=== PATIENT | female | born 1995 | race Caucasian/White ===

== ENCOUNTER → 2022-04-23 | Outpatient (CLI) | payer MEDICAID, SELFPAY ==
[2022-04-23 11:24] LABS: Absolute Lymphocyte Count 1.76 X10^3/uL (0.83-4.51); Basophil# 0.02 X10^3/uL; Basophil% 0.3 % (0-1); Eosinophil# 0.03 X10^3/uL; Eosinophils% 0.4 % (0-5); Hematocrit 38.8 % (37-47); Hemoglobin 13.3 g/dL (12.0-15.0); Lymphocyte # 1.76 X10^3/ul (0.83-4.51); Lymphocyte % 24.7 % (19-41); Mean Corp Hgb Conc 34.3 g/dL (32-36); Mean Corpuscular Hgb 32.1 pg (27.0-32.0); Mean Corpuscular Volume 93.7 fL (81-99); Mean Platelet Vol. 10.3 fl (6.2-12.0); Monocyte# 0.31 X10^3/uL; Monocyte% 4.4 % (0-10); NRBC Flagged by Analyzer 0 % (0-5); Neutrophil # 4.96 X10^3/uL (2.7-7.7); Neutrophil % 69.6 % (47-70); Platelet Count 196 K/mm3 (150-450); RBC Distribution Width CV 12.1 % (11.6-14.6); RBC Distribution Width SD 41.5 fl (35.1-43.9); Red Blood Count 4.14 M/mm3 (4.2-5.4); White Blood Count 7.1 K/mm3 (4.4-11.0)
[2022-04-23 11:52] LABS: Albumin, Serum 3.2 g/dL (3.2-5.0); BUN 6 mg/dL (7-18); BUN/Creat Ratio 10.1 RATIO (10-20); EST Glomerular Filtration Rate 130 mL/min (>60); Est Glom Filt Rate - Afr Amer 158 mL/min (>60); Globulin 4.3 g/dL (2.2-4.2); Glucose 156 mg/dL (74-106); Glucose Challenge Gest 1H 50g 156 mg/dL (70-140); Protein, Total 7.5 g/dL (6.4-8.2)
[2022-04-23 11:53] LABS: ALB/GLOB Ratio 0.7 RATIO (0.9-2.4); AST(SGOT) 11 U/L (15-37); Alanine Aminotransfer ALT/SGPT 15 U/L (13-56); Alkaline Phosphatase 63 U/L (45-117); Anion Gap 6 (5-15); Calcium,Total 9.2 mg/dL (8.5-10.1); Chloride 108 mmol/L (98-107); Potassium 3.5 mmol/L (3.5-5.1); Sodium Level 138 mmol/L (136-145)
[2022-04-23 13:06] LABS: HIV - WCH Non-Reactive (Nonreactive); Hepatitis B Surface Antigen Non-Reactive (Nonreactive); Hepatitis C Antibody Non-Reactive (Nonreactive); Rubella IgG Reactive (Nonreactive); Syphilis Antibodies Non-reactive
[2022-04-23 17:01] LABS: Protein, Urine (Random) 12.9 mg/dL (<11.9); Protein:Creat Ratio 193 mg/g CRE (0-200)
[2022-04-23 17:02] LABS: Amphetamine Urine VISTA NEGATIVE (<1000 ng/mL); Barbiturate Urine VISTA NEGATIVE (< 200 ng/mL); Benzodiazepine Urine VISTA NEGATIVE (< 200 ng/mL); Cocaine Urine VISTA NEGATIVE (< 300 ng/mL); Ecstacy Urine VISTA NEGATIVE (< 500 ng/mL); Methadone Urine VISTA NEGATIVE (< 300 ng/mL); PCP Urine VISTA NEGATIVE (< 25 ng/mL); THC Urine VISTA NEGATIVE (< 50 ng/mL); Vista UDS pH Range 8
[2022-04-25 21:07] LABS: Chlamydia By Nucleic Acid AMP Negative (Negative)
[2022-04-25 21:47] LABS: Gonococcus By Nucleic Acid AMP Negative (Negative)
[2022-04-29 17:26] LABS: HPV Reflexed? NOT INDICATED
== END | disposition home or self-care (01) ==
PROVIDERS: PCP Family Medicine; Referring Provider Obstetrics & Gynecology; Visit Provider Obstetrics & Gynecology
DX: Z34.90 Encounter for supervision of normal pregnancy, unspecified, unspecified trimester (principal)
CPT/HCPCS: 36415; 80053; 80307; 82570; 82950; 84156; 85025; 86703; 86762; 86780; 86803; 86850; 86900; 86901; 87086; 87088; 87340; 87491; 87591; 88175; G0145

== ENCOUNTER → 2022-05-06 | Outpatient (CLI) | payer MEDICAID, SELFPAY ==
[2022-05-06 11:45] LABS: Glucose GTT-Gestation. Fasting 87 mg/dL (<105)
[2022-05-06 13:05] LABS: Glucose GTT-Gestational 2 Hr 143 mg/dL (<165)
[2022-05-06 13:14] LABS: Glucose GTT-Gestational 1 Hr 177 mg/dL (<190)
[2022-05-06 15:53] LABS: Glucose GTT-Gestational 3 Hr 117 L (<145)
== END | disposition home or self-care (01) ==
PROVIDERS: PCP Family Medicine; Referring Provider Obstetrics & Gynecology; Visit Provider Obstetrics & Gynecology
DX: Z13.1 Encounter for screening for diabetes mellitus (principal)
CPT/HCPCS: 36415; 82951; 82952

== ENCOUNTER → 2022-06-24 | Outpatient (CLI) | payer MEDICAID, SELFPAY ==
--- NOTE | 2022-06-24 07:46 | US_ITS ---
STUDY: SECOND AND THIRD TRIMESTER OBSTETRICAL ULTRASOUND REASON FOR EXAM: Female, 27 years old anatomy LMP: 02/11/2022. TECHNIQUE: Transabdominal and Transvaginal TECHNICAL QUALITY: Adequate. PRIOR ULTRASOUND: None. FINDINGS: There is a single intrauterine fetus. The fetus is in a cephalic presentation. There is demonstrated cardiac activity with a heart rate of 136 bpm. There is a normal amniotic fluid volume. The largest amniotic fluid pocket measures 4.3 cm. The amniotic fluid index (ALEX) is with normal limits. The placenta is posterior in location and is not low lying. There are Grade 0 placental changes. The cervix measures 5 cm in length. The adnexal regions are not visualized. BIOMETRY: BPD: 4.02 cm: 18 weeks, 1 days HC: 15.65 cm: 18 weeks, 3 days AC: 13.92 cm: 19 weeks, 2 days FL: 2.84 cm: 18 weeks, 4 days CI: 73% FL/BPD: 71% FL/HC: FL/AC: 20.4% HC/AC: 1.1 age by current US: 18 weeks, 3 days. CHADD by current US: 11/22/2022. Estimated weight: 266 grams, +/- 4 grams, 42 %. Age by LMP: 19 weeks, 0 days. CHADD by LMP: 11/18/2022. ANATOMY: Gender: Female Cranium: Normal lateral ventricles. Normal choroid plexus. Normal cerebellum. Normal cisterna magna. Normal face, nose and lips. Chest: Normal 4-chamber heart. Abdomen/Pelvis: Normal diaphragm. Normal stomach. Normal abdominal wall. Normal cord insertion. Normal 3 vessel cord. Normal kidneys. Normal bladder. Spine: Normal cervical spine. Normal thoracic spine. Normal lumbar spine. Normal sacrum. Extremities: Normal bilateral upper extremities. Normal bilateral lower extremities. US/OB Anatomy Scan IMPRESSION: Single live intrauterine gestation with a mean gestational age of 18 weeks and 3 days. Electronically Signed: José Luis Santiago MD at 10:22 EDT ,
== END | disposition home or self-care (01) ==
LOC: OPUS 07:45
PROVIDERS: PCP Family Medicine; Visit Provider Obstetrics & Gynecology
DX: Z34.92 Encounter for supervision of normal pregnancy, unspecified, second trimester (principal); Z3A.18 18 weeks gestation of pregnancy
CPT/HCPCS: 76805; 76817

== ENCOUNTER → 2022-09-04 | Outpatient (CLI) | payer MEDICAID, SELFPAY ==
[2022-09-04 11:11] LABS: Glucose GTT-Gestation. Fasting 82 mg/dL (<105)
[2022-09-04 11:24] LABS: Absolute Lymphocyte Count 2.06 X10^3/uL (0.83-4.51); Absolute Neutrophil Count 5.7 X10^3/uL (2.0-7.7); Basophil# 0.02 X10^3/uL; Basophil% 0.2 % (0-1); Eosinophil# 0.08 X10^3/uL; Hematocrit 32.4 % (37-47); Hemoglobin 10.6 g/dL (12.0-15.0); Lymphocyte # 2.06 X10^3/ul (0.83-4.51); Lymphocyte % 24.7 % (19-41); Mean Corp Hgb Conc 32.7 g/dL (32-36); Mean Corpuscular Volume 100.9 fL (81-99); Mean Platelet Vol. 9.8 fl (6.2-12.0); Monocyte# 0.41 X10^3/uL; Monocyte% 4.9 % (0-10); NRBC Flagged by Analyzer 0 % (0-5); Neutrophil # 5.66 X10^3/uL (2.7-7.7); Platelet Count 152 K/mm3 (150-450); RBC Distribution Width CV 12.8 % (11.6-14.6); RBC Distribution Width SD 46.6 fl (35.1-43.9); Red Blood Count 3.21 M/mm3 (4.2-5.4); White Blood Count 8.3 K/mm3 (4.4-11.0)
[2022-09-04 12:07] LABS: Glucose GTT-Gestational 1 Hr 169 mg/dL (<190)
[2022-09-04 13:35] LABS: Glucose GTT-Gestational 2 Hr 143 mg/dL (<165)
[2022-09-04 14:00] LABS: Glucose GTT-Gestational 3 Hr 138 L (<145)
== END | disposition home or self-care (01) ==
LOC: LAB 09:54
PROVIDERS: PCP Family Medicine; Visit Provider Obstetrics & Gynecology
DX: O99.210 Obesity complicating pregnancy, unspecified trimester (principal); Z86.32 Personal history of gestational diabetes
CPT/HCPCS: 36415; 82951; 82952; 85025

== ENCOUNTER → 2022-10-23 | Outpatient (CLI) | payer MEDICAID, SELFPAY ==
--- NOTE | 2022-10-23 10:09 | US_ITS ---
STUDY: SECOND AND THIRD TRIMESTER OBSTETRICAL ULTRASOUND - LIMITED REASON FOR EXAM: Female, 27 years old. growth PRIOR ULTRASOUND: 06.24.22. TECHNIQUE: Transabdominal TECHNICAL QUALITY: Adequate. FINDINGS: There is a single intrauterine fetus. The fetus is in an transverse lie with the head on the maternal left side. There is demonstrated cardiac activity with a heart rate of 148 bpm. There is a normal amniotic fluid volume. The largest amniotic fluid pocket measures 4.7 cm. The amniotic fluid index (ALEX) is 14.7 cm. The placenta is posterior in location and is not low lying. There are Grade 0 placental changes. The cervix measures cm in length: 3.3. BIOMETRY: BPD: 93 mm: 37 weeks, 5 days HC: 344 mm: 39 weeks, 5 days AC: 341 mm: 38 weeks, 0 days FL: 70 mm: 35 weeks, 6 days CI: 77 FL/AC: 20.5 FL/BPD: 75.28 HC/AC: 1.01 age by current US: 38 weeks, 0 days. CHADD by current US: 12.7.22. Estimated weight: 3232 grams, +/- 485 grams, 83 %. age by prior US: 35 weeks, 5 days. CHADD by prior US: 12... Age by LMP: 36 weeks, 2 days. CHADD by LMP: 12... US/OB Limited With Biometrics IMPRESSION: There is a single live intrauterine with a heart rate of 148 bpm. age by current US: 38 weeks, 0 days. CHADD by current US: 12.7.22. Estimated weight: 3232 grams, +/- 485 grams, 83 %. EFW is greater than 75%. Large for gestational age (LGA) should be considered. Electronically Signed: Isaias Felix MD at 17:11 EST ,
== END | disposition home or self-care (01) ==
PROVIDERS: PCP Family Medicine; Visit Provider Obstetrics & Gynecology
DX: O09.90 Supervision of high risk pregnancy, unspecified, unspecified trimester (principal); Z3A.38 38 weeks gestation of pregnancy
CPT/HCPCS: 76816; 87077; 87081

== ENCOUNTER 2022-11-03 18:25 | Outpatient (CLI) | payer MEDICAID, SELFPAY ==
[2022-11-03 18:43] VITALS: BP 130/75; PULSE 115; TEMP 36.2; O2SAT 96
[2022-11-03 18:47] VITALS: BMI 40.1
[2022-11-03 19:38] VITALS: BP 128/78; PULSE 103; O2SAT 96
[2022-11-03 19:39] VITALS: TEMP 36.9
[2022-11-03] MEDS: Lactated Ringers 1,000 ML 999 ML IV ×2 (19:55→21:01)
[2022-11-03 20:03] LABS: Mucous, Urine 0 SEEN /hpf (<or=2+); Red Blood Cells-Urine 0 SEEN /hpf (0-5)
[2022-11-03] MEDS: Acetaminophen 500 MG Tablet 1000 MG PO (20:06)
[2022-11-03 20:17] LABS: Color, Urine Yellow (Yellow); Glucose, Dipstick Normal (Normal); Leukocyte Esterase-Dipstick 25 /ul (Negative); Nitrite-Dipstick Negative (Negative); Occult Blood-Urine Negative /ul (Negative); Protein-Dipstick 30 mg/dl (Negative); Urine Clarity Cloudy (Clear); Urine Urobilinogen 4 mg/dl (Normal)
[2022-11-03 20:29] LABS: Urine Bilirubin Dipstick 1 mg/dL (Negative)
[2022-11-03 20:30] LABS: Ketone-Dipstick 150 mg/dl (Negative)
[2022-11-03 20:31] LABS: Amorphous Sediment 1+ URATE; Bacteria RARE /hpf (None Seen); Squamous Epithelial Cells - UA 0-5 SEEN /hpf (5-10); White Blood Cells 0-5 SEEN /hpf (0-5)
[2022-11-03] MEDS: hydrOXYzine PAM 25 MG Capsule 50 MG PO (21:01)
--- NOTE | 2022-11-03 21:30 | OB.TRI.HP_ITS ---
HPI - General HPI Narrative MEAGHAN APONTE, is a 27 y/o who presents to L&D with back pain and contractions. She has a h/o prior section and is scheduled for repeat on 11/14. The nurse called with report that her cervix was not dilated and contractions palpating mildly. She was given orders to give IV fluids and offer the patient vistaril and tylenol while hydrating. Urinalyis was also ordered showing signs of dehydration. Maternal Data Information CHADD Calculator Estimated Delivery Date Method Current WG Current Estimate 11/18/22 LMP (Certain) 38w 2d PFSH [facility] Medical History (Updated 11/03/22 @ 20:15 by Dontrell Owen) delivery delivered Gestational diabetes Gestational HTN Headache Pre-eclampsia Superficial varicosities Home Medications prenat.vits,amy,frc-paci-ynygz 1 tab PO DAILY 04/11/22 [History Last Taken 11/03/22 08:00] aspirin 81 mg capsule 81 mg PO DAILY 11/03/22 [History Last Taken 11/02/22] ferrous sulfate 325 mg (65 mg iron) capsule,extended release 325 mg PO DAILY 11/03/22 [History Last Taken 11/03/22 08:00] Allergy/AdvReac Type Severity Reaction Status Date / Time No Known Allergies Allergy Verified 11/03/22 18:45 Social History adopted: No household members: significant other number of children: 2 current occupational status: employed current occupation: [employer] pets and animals: Yes (avoid litter box) pets and animals: cat(s) Smoking Status: Never smoker alcohol intake: never substance use type: marijuana do you feel safe at home: Yes additional social history: Chandu Knutson History 3 Elective abortions Hx Para 2 Spontaneous abortions Hx # Term Pregnancies Ectopic pregnancies Hx # Pregnancies Multiple births # of living children 2 Past Pregnancies Del. Date Name GA/Weeks Outcome Route Bth Weight Gen Labor Lgth Anesthesia Del Locatn Provider FOB Unknown 05/30/2016 Verik 39 live - full term 8# 12oz Male 26 hr epidural [facility] [place] Unknown 12/26/2017 38 live - full term 8# 15oz Male epidural [facility] Delivery Date: Last Updated by: Thi Vo NP, FAMILY INDEPENDENCE CASE MANAGER-C FTP. GDM Delivery Date: Last Updated by: Thi Vo NP, FAMILY INDEPENDENCE CASE MANAGER-C Emergent CS due Pre E, severe features. Visit Details Expected Delivery Route/Plan RLTCS with JV Plans Covid status: [] Flu vaccine:declines Tdap vaccine:obtained Rhogam: n/a LARC form signed: [] movement and labor precautions reviewed. Problem list reviewed and updated with the most current plan of care details and appropriate orders placed. Relevant counseling for the gestational age provided. Continue routine care and follow up unless otherwise noted in visit notes/problem list details OB Flowsheet Initial Weight: Not Recorded Date -?-?-?-?-?-?-?-?-?-?-?-?- EGA Weight BP Urine Prot -?-?-?-?-?-?-?-?-?-?-?-?- Glucose FHR FuHt Pres Dilation -?-?-?-?-?-?-?-?-?-?-?-?- Effaced St Visit Note 04/23/22 -?-?-?-?-?-?-?-?-?-?-?-?- 10w 1d 198 lb 124/82 -?-?-?-?-?-?-?-?-?-?-?-?- 150 -?-?-?-?-?-?-?-?-?-?-?-?- SM- CRL 3.1 cm c ons with LMP 05/20/22 -?-?-?-?-?-?-?-?-?-?-?-?- 14w 0d 192 lb 122/82 Negative -?-?-?-?-?-?-?-?-?-?-?-?- Negative 160 -?-?-?-?-?-?-?-?-?-?-?-?- SM- reviewed lab s. having girl Vyla! 06/19/22 -?-?-?-?-?-?-?-?-?-?-?-?- 18w 2d 194 lb 102/74 Negative -?-?-?-?-?-?-?-?-?-?-?-?- Negative 156 -?-?-?-?-?-?-?-?-?-?-?-?- JV- no lof, vagi nalb leeding, or cramping. recommend compression stockings for some light headedness when standing. planning for rpt section at 39 weeks however pt states that she always goes before then. She failed her 1 hr gct and passed 3 hr. will rpt one hour at 28 weeks but will give option to move straight to the 3 hr. 07/19/22 -?-?-?-?-?-?-?--?-?-?-?-?- 22w 4d 201 lb 4 oz 118/79 Nega tive -?-?-?-?-?-?-?-?-?-?-?-?- Negative 150 -?-?-?-?-?-?-?-?-?-?-?-?- JV- no lof, vagi nal bleeding or dec fm. plans to do 3 hr gtt. 08/16/22 -?-?-?-?-?-?-?-?-?-?-?-?- 26w 4d 214 lb 120/78 Negative -?-?-?-?-?-?-?-?-?-?-?-?- Negative 147 -?-?-?-?-?-?-?-?-?-?-?-?- JV- no lof, vagi nal bleeding, or dec fm. gtt next visit. 08/30/22 -?-?-?-?-?-?-?-?-?-?-?-?- 28w 4d 211 lb 113/75 Negative -?-?-?-?-?-?-?-?-?-?-?-?- Negative 143 30 -?-?-?-?-?-?-?-?-?-?-?-?- LC-no lof,vb,ctx . +FM. tdap given today. 3hr gtt on friday. 09/13/22 -?-?-?-?-?-?-?-?-?-?-?-?- 30w 4d 213 lb 134/76 -?-?-?-?-?-?-?-?-?-?-?-?- 140 31 -?-?-?-?-?-?-?-?-?-?-?-?- SM- no vb lof go od fm no regular ctx yeast in groin- ordered nystop 09/27/22 -?-?-?-?-?-?-?-?-?-?-?-?- 32w 4d 219 lb 107/72 Negative -?-?-?-?-?-?-?-?-?-?-?-?- Negative 145 -?-?-?-?-?-?-?-?-?-?-?-?- JV- no lof, vagi nal bleeding, or dec fm. getting over yeast infection. planning repeat 10/11/22 -?-?-?-?-?-?-?-?-?-?-?-?- 34w 4d 222 lb 131/80 Negative -?-?-?-?-?-?-?-?-?-?-?-?- Negative 166 36 -?-?-?-?-?-?-?-?-?-?-?-?- JV-no lof, vagin al bleedin or dec fm measuring lga needs growth scan 36 weeks 10/23/22 -?-?-?-?-?-?-?-?-?-?-?-?- 36w 2d 229 lb 2 oz 112/72 -?-?-?-?-?-?-?-?-?-?-?-?- 146 41 Transverse 0 -?-?-?-?--?-?-?-?-?-?-?-?- JV- growth scan today pending but tech told pt baby is already 8 lbs. ALEX 14. GBs collected. 11/01/22 -?-?-?-?-?-?-?-?-?-?-?-?- 37w 4d 232 lb 111/80 Negative -?-?-?-?-?-?-?-?-?-?-?-?- Negative 145 42 -?-?-?-?-?-?-?-?-?-?-?-?- SM- no vb lof go od fm no regular ctx ROS Constitutional Constitutional: Reports systems reviewed and no addt'l complaints, except as documented Gastrointestinal Gastrointestinal: Denies bloating, constipation, cramping, diarrhea, nausea or vomiting Genitourinary Genitourinary: Reports other Details: Denies vaginal odor, vaginal bleeding, or vaginal discharge ; Denies difficulty urinating or flank pain NST FHR Rate Baby A Baseline: 140 Variability:: Moderate Accelerations:: 15 x 15 Decelerations:: None NST Reactive:: Yes FHR Category:: Category I Assessment & Plan (1) History of : COMMENT: X 2:1st:fTP; 2nd:Pre E, RLTCS scheduled 11/14 @ 7:30 with JV (2) History of gestational diabetes: COMMENT: 1st . Check 1 hr GCT NOB, early:1 hr GCT elevated 156. 3 hr GCTnl rpt 3 hr 28weeks: [] (3) History of pre-eclampsia: COMMENT: 2nd , emergent CS. baseline labs drawn. baby asa at 14 weeks. (4) Supervision of high risk , antepartum: COMMENT: PRR CHADD:11/18/22, girl, Vyla PC:Lakesha Garcia. [facility]. (5) : QUALIFIERS: Weeks of gestation: 36 weeks Qualified Code(s): Z3A.36 - 36 weeks gestation of COMMENT: anatomy nl, NIPT low risk, carrier neg. (6) Obesity affecting : QUALIFIERS: Trimester: third trimester Qualified Code(s): O99.213 - Obesity complicating , third trimester COMMENT: 3 hr gct nl. (7) Anemia: COMMENT: Add Fe OTC once daily opposite PNV. (8) Positive GBS test: COMMENT: PCN at delivery PLAN: Plan false labor after monitoring for 2 hours. No cervical change and contractions sp aced out. I offered to keep her longer overnight and NPO incase cervix changed and she decided to go home and rest. Charges/Coding Multi Select Codes Urinary/Genital Urinary/Genital CPT Codes: 60166-57 non-stress test Interp
[2022-11-03 22:27] VITALS: BP 126/72; PULSE 99; TEMP 36.7
== END 2022-11-03 23:05 | disposition home or self-care (01) ==
LOC: WPOUT 18:27 → WP 18:28
PROVIDERS: PCP Family Medicine; Visit Provider Obstetrics & Gynecology
DX: O47.1 False labor at or after 37 completed weeks of gestation (principal); O99.213 Obesity complicating pregnancy, third trimester; Z3A.38 38 weeks gestation of pregnancy; Z3A.36 36 weeks gestation of pregnancy
CPT/HCPCS: 96360; 96361 ×3; 59025; 59050; 81001; 87086; 87088; 99218; J7120; G0378

== ENCOUNTER 2022-11-14 05:33 | Inpatient (IN) | payer MEDICAID, SELFPAY ==
[2022-11-14] VITALS (24 sets, daily range): BP systolic 91–139; BP diastolic 50–78; PULSE 92–115; RESP 14–18; TEMP 36.1–36.7; O2SAT 92–98; BMI 40.5
[2022-11-14] MEDS: Lactated Ringers 1,000 ML 999 ML IV (05:50)
[2022-11-14] MEDS: Acetaminophen 500 MG Tablet 1000 MG PO ×4 (06:01→23:32)
[2022-11-14 06:04] LABS: Basophil# 0.03 X10^3/uL; Basophil% 0.3 % (0-1); Eosinophil# 0.06 X10^3/uL; Eosinophils% 0.6 % (0-5); Hematocrit 32.7 % (37-47); Hemoglobin 10.3 g/dL (12.0-15.0); Lymphocyte % 25.5 % (19-41); Mean Corp Hgb Conc 31.5 g/dL (32-36); Mean Corpuscular Hgb 29.4 pg (27.0-32.0); Mean Corpuscular Volume 93.4 fL (81-99); Mean Platelet Vol. 11.1 fl (6.2-12.0); Monocyte# 0.72 X10^3/uL; Monocyte% 7.7 % (0-10); NRBC Flagged by Analyzer 0 % (0-5); Neutrophil # 6.04 X10^3/uL (2.7-7.7); Neutrophil % 64.3 % (47-70); Platelet Count 148 K/mm3 (150-450); RBC Distribution Width CV 13.8 % (11.6-14.6); RBC Distribution Width SD 46.6 fl (35.1-43.9); White Blood Count 9.4 K/mm3 (4.4-11.0)
[2022-11-14] MEDS: Sodium Citrate/Citric Acid 30 ML UDC PO (07:01)
[2022-11-14] MEDS: Lactated Ringers 1,000 ML 150 ML IV (07:01)
--- NOTE | 2022-11-14 07:08 | HP.PCM.OB_ITS ---
HPI - General General Date of Admission: 11/14/22 HPI Narrative MEAGHAN APONTE, is a 27 y/o @39 weeks 3 days who presents to L&D for a repeat section. Maternal Data Information CHADD Calculator Estimated Delivery Date Method Current WG Current Estimate 11/18/22 LMP (Certain) 39w 3d PFSH [facility] Medical History delivery delivered Gestational diabetes Gestational HTN Headache Pre-eclampsia Superficial varicosities Home Medications prenat.vits,amy,kay-hgxn-oinij 1 tab PO DAILY 04/11/22 [History Last Taken 11/13/22] aspirin 81 mg capsule 81 mg PO DAILY 11/03/22 [History Last Taken 11/13/22] ferrous sulfate 325 mg (65 mg iron) capsule,extended release 325 mg PO DAILY 11/03/22 [History Last Taken 11/13/22] Allergy/AdvReac Type Severity Reaction Status Date / Time No Known Allergies Allergy Verified 11/08/22 10:24 Social History adopted: No household members: significant other number of children: 2 current occupational status: employed current occupation: [employer] pets and animals: Yes (avoid litter box) pets and animals: cat(s) Smoking Status: Never smoker alcohol intake: never substance use type: marijuana do you feel safe at home: Yes additional social history: Chnadu Eamon History 3 Elective abortions Hx Para 2 Spontaneous abortions Hx # Term Pregnancies Ectopic pregnancies Hx # Pregnancies Multiple births # of living children 2 Past Pregnancies Del. Date Name GA/Weeks Outcome Route Bth Weight Infant Gen Labor Lgth Anesthesia Del Locatn Provider FOB Unknown 05/30/2016 Verik 39 live - full term 8# 12oz Male 26 hr epidural [facility] [place] Unknown 12/26/2017 38 live - full term 8# 15oz Male epidural [facility] Delivery Date: Last Updated by: Thi Vo DOCTOR CHIROPRACTIC, DOCTOR CHIROPRACTIC-C FTP. GDM Delivery Date: Last Updated by: Thi Vo NP, DOCTOR CHIROPRACTIC-C Emergent CS due Pre E, severe features. Visit Details Expected Delivery Route/Plan RLTCS with JV Plans Covid status: [] Flu vaccine:declines Tdap vaccine:obtained Rhogam: n/a LARC form signed: [] movement and labor precautions reviewed. Problem list reviewed and updated with the most current plan of care details and appropriate orders placed. Relevant counseling for the gestational age provided. Continue routine care and follow up unless otherwise noted in visit notes/problem list details OB Flowsheet Initial Weight: Not Recorded Date -?-?-?-?-?-?-?-?-?-?-?-?- EGA Weight BP Urine Prot -?-?-?-?-?-?-?-?-?-?-?-?- Glucose FHR FuHt Pres Dilation -?-?-?-?-?-?-?-?-?-?-?-?- Effaced St Visit Note 04/23/22 -?-?-?-?-?-?-?-?-?-?-?-?- 10w 1d 198 lb 124/82 -?-?-?-?-?-?-?-?-?-?-?-?- 150 -?-?-?-?-?-?-?-?-?-?-?-?- SM- CRL 3.1 cm c ons with LMP 05/20/22 -?-?-?-?-?-?-?-?-?-?-?-?- 14w 0d 192 lb 122/82 Negative -?-?-?-?-?-?-?-?-?-?-?-?- Negative 160 -?-?-?-?-?-?-?-?-?-?-?-?- SM- reviewed lab s. having girl Vyla! 06/19/22 -?-?-?-?-?-?-?-?-?-?-?-?- 18w 2d 194 lb 102/74 Negative -?-?-?-?-?-?-?-?-?-?-?-?- Negative 156 -?-?-?-?-?-?-?-?--?-?-?-?- JV- no lof, vagi nalb leeding, or cramping. recommend compression stockings for some light headedness when standing. planning for rpt section at 39 weeks however pt states that she always goes before then. She failed her 1 hr gct and passed 3 hr. will rpt one hour at 28 weeks but will give option to move straight to the 3 hr. 07/19/22 -?-?-?-?-?-?-?-?-?-?-?-?- 22w 4d 201 lb 4 oz 118/79 Nega tive -?-?-?-?-?-?-?-?-?-?-?-?- Negative 150 -?-?-?-?-?-?-?-?-?-?-?-?- JV- no lof, vagi nal bleeding or dec fm. plans to do 3 hr gtt. 08/16/22 -?-?-?-?-?-?-?-?-?-?-?-?- 26w 4d 214 lb 120/78 Negative -?-?-?-?-?-?-?-?-?-?-?-?- Negative 147 -?-?--?-?-?-?-?-?-?-?-?-?- JV- no lof, vagi nal bleeding, or dec fm. gtt next visit. 08/30/22 -?-?-?-?-?-?-?-?-?-?-?-?- 28w 4d 211 lb 113/75 Negative -?-?-?-?-?--?-?-?-?-?-?-?- Negative 143 30 -?-?-?-?-?-?-?-?-?-?-?-?- LC-no lof,vb,ctx . +FM. tdap given today. 3hr gtt on friday. 09/13/22 -?-?-?-?-?-?-?-?-?-?-?--?- 30w 4d 213 lb 134/76 -?-?-?-?-?-?-?-?-?-?-?-?- 140 31 -?-?-?-?-?-?-?-?-?-?-?-?- SM- no vb lof go od fm no regular ctx yeast in groin- ordered nystop 09/27/22 -?-?-?-?-?-?-?-?-?-?-?-?- 32w 4d 219 lb 107/72 Negative -?-?-?-?-?-?-?-?-?-?-?-?- Negative 145 -?-?-?-?-?-?-?-?-?--?-?-?- JV- no lof, vagi nal bleeding, or dec fm. getting over yeast infection. planning repeat 10/11/22 -?-?-?-?-?-?-?-?-?-?-?-?- 34w 4d 222 lb 131/80 Negative -?-?-?-?-?-?-?-?-?-?-?-?- Negative 166 36 -?-?-?-?-?-?-?-?-?-?-?-?- JV-no lof, vagin al bleedin or dec fm measuring lga needs growth scan 36 weeks 10/23/22 -?-?-?-?-?-?-?-?-?-?-?-?- 36w 2d 229 lb 2 oz 112/72 -?-?-?-?-?-?-?-?-?-?-?-?- 146 41 Transverse 0 -?-?-?-?-?-?-?-?-?-?-?-?- JV- growth scan today pending but tech told pt baby is already 8 lbs. ALEX 14. GBs collected. 11/01/22 -?-?-?-?-?-?-?-?-?-?-?-?- 37w 4d 232 lb 111/80 Negative -?-?-?-?-?-?-?-?-?-?-?-?- Negative 145 42 -?-?-?-?-?-?-?-?-?-?-?-?- SM- no vb lof go od fm no regular ctx 11/08/22 -?-?-?-?-?-?-?-?-?-?-?-?- 38w 4d 236 lb 124/79 Negative -?-?-?-?-?-?-?-?-?-?-?-?- Negative 140 -?-?-?-?-?-?-?-?-?-?-?-?- SM- no vb lof go od fm no regualr ctx ROS Constitutional Constitutional: Denies change in weight, fatigue, fever(s), headache(s), poor appetite or weakness Eyes Eyes: Denies blurry vision, change in vision, seeing flashes or spots in vision ENT HEENT: Denies dizziness, headache(s), loss taste/smell or sore throat Cardiovascular Cardiovascular: Denies chest pain, dizziness, dyspnea, irregular heart rhythm, leg edema, palpitations, rapid heart rate or vomiting Respiratory/Chest Respiratory/Chest: Denies chest tightness, cough, dyspnea or breast pain Gastrointestinal Gastrointestinal: Denies abdominal pain, anorexia, constipation, cramping, diarrhea, hemorrhoids, vomiting or weight changes Genitourinary Genitourinary: Denies dysuria, flank pain, genital lesions, genital pain, urinary frequency or urinary urgency Musculoskeletal Musculoskeletal: Denies back pain, difficulty walking, joint pain, limited range of motion, muscle cramps or numbness Integumentary Integumentary: Denies lesions or unusual bruising Neurologic Neurologic: Denies abnormal movements, abnormal speech, dizziness, numbness, seizure-like activity or syncope Psychiatric Psychiatric: Denies anxiety, behavioral changes, change in appetite, change in libido, cognitive impairment, confusion, depression, difficulty concentrating, hallucinations or suicidal thoughts Endocrine Endocrinology: Denies excessive sweating, polydipsia or polyuria Hematologic/Lymphatic Hematologic/Lymphatic: Denies easy bleeding, easy bruising or lymphadenopathy Allergic/Immunologic Allergic/Immunologic: Denies itchy eyes, lip swelling, seasonal rhinorrhea, rhinitis, throat swelling, tongue swelling, eczemia, wheezing or asthma Vital Signs Vital Signs Vital Signs: 11/14/22 05:45 11/14/22 05:45 11/14/22 05:45 Temperature Temperature Source Pulse Rate 112 H 113 H Respiratory Rate Blood Pressure 139/78 H Blood Pressure Mean BP Systolic 139 BP Diastolic 78 Blood Pressure Source Blood Pressure Position Blood Pressure Location Pulse Ox Oxygen Delivery Method 11/14/22 05:45 11/14/22 05:43 11/14/22 05:43 Temperature 97.2 F L Temperature Source Temporal Pulse Rate Respiratory Rate Blood Pressure Blood Pressure Mean BP Systolic BP Diastolic Blood Pressure Source Blood Pressure Position Blood Pressure Location Pulse Ox 97 Oxygen Delivery Method 11/14/22 05:57 Temperature 97.2 F L Temperature Source Temporal Pulse Rate 115 H Respiratory Rate 16 Blood Pressure 139/78 H Blood Pressure Mean 98 BP Systolic BP Diastolic Blood Pressure Source Monitor Blood Pressure Position Semi-Fowlers Blood Pressure Location Right Arm Pulse Ox 98 Oxygen Delivery Method Room Air Weight Weight: 236 lb Body Mass Index (BMI) 40.5 Physical Exam Const alert, oriented x3, no apparent distress and healthy appearing General Appearance: cooperative; Negative for anxious HEENT normocephalic Face and Sinus: normal facial exam Eyes EOMs intact bilaterally and no scleral icterus General Eye: normal appearance of both eyes Neck full ROM and supple Lymph Lymphatic: no lymphadenopathy noted Chest Chest: abnormal inspection of the chest Resp normal respiratory effort Effort and Inspection: able to speak in complete sentences Cardio regular rate GI soft to palpation and non-tender Inspection: gravid Palpation: soft; Negative for tender Back/Spine no CVA tenderness Extremity normal to inspection, full ROM and no clubbing, cyanosis or edema General Extremity: Negative for calf tenderness or edema Skin Lesions: no lesions Rashes: no rashes Psych mental status grossly normal Labs Labs Labs: Blood Type O POSITIVE Antibody Screen NEGATIVE Hct 32.7 % (37-47) L Hgb 10.3 g/dL (12.0-15.0) L Obstetrics US Syphilis Total Ab Non-reactive Rubella IgG Antibody Reactive (Nonreactive) Hep Bs Antigen Non-Reactive (Nonreactive) Chlamydia DNA (GEMA) Negative (Negative) Neisseria gonorrhoeae DNA (GEMA) Negative (Negative) HIV 1&2 Antibody Non-Reactive (Nonreactive) Glucose 1 Hr 50 gm 156 mg/dL (70-140) H Miscellaneous Test Assessment & Plan (1) History of : COMMENT: X 2:1st:fTP; 2nd:Pre E, RLTCS scheduled 11/14 @ 7:30 with JV (2) History of gestational diabetes: COMMENT: 1st . Check 1 hr GCT NOB, early:1 hr GCT elevated 156. 3 hr GCTnl rpt 3 hr 28weeks: [] (3) History of pre-eclampsia: COMMENT: 2nd , emergent CS. baseline labs drawn. baby asa at 14 weeks. (4) Supervision of high risk , antepartum: COMMENT: PRR CHADD:11/18/22, girl, Vyla PC:Lakesha Garcia. Fiance:Eamon([facility]) 1st together. (5) : QUALIFIERS: Weeks of gestation: 38 weeks Qualified Code(s): Z3A.38 - 38 weeks gestation of COMMENT: anatomy nl, NIPT low risk, carrier neg. (6) Obesity affecting : QUALIFIERS: Trimester: third trimester Qualified Code(s): O99.213 - Obesity complicating , third trimester COMMENT: 3 hr gct nl. (7) Anemia: COMMENT: Add Fe OTC once daily opposite PNV. (8) Positive GBS test: COMMENT: PCN at delivery PLAN: Plan plan for repeat section- ERAS protocol ordered SCDs 2 grams ancef plan for dc after 24-48 hrs if both mom and baby are stable per nurses, FOB active funny h/o THC use, will run tox screen per their assessment and protocol with h/o drug use.
[2022-11-14] MEDS: Cefazolin 2 GM in 0.9% Normal Saline 100 ML IV (07:15)
[2022-11-14 07:33] LABS: Amphetamine Urine VISTA NEGATIVE (<1000 ng/mL); Barbiturate Urine VISTA NEGATIVE (< 200 ng/mL); Benzodiazepine Urine VISTA NEGATIVE (< 200 ng/mL); Cocaine Urine VISTA NEGATIVE (< 300 ng/mL); Ecstacy Urine VISTA NEGATIVE (< 500 ng/mL); Methadone Urine VISTA NEGATIVE (< 300 ng/mL); PCP Urine VISTA NEGATIVE (< 25 ng/mL); THC Urine VISTA NEGATIVE (< 50 ng/mL); Vista UDS pH Range 6
[2022-11-14] MEDS: Oxytocin 15 Units/NS 250ml 15 UNITS/250 ML IV.SOLN 83 UNITS IV (08:30)
--- NOTE | 2022-11-14 08:36 | OP.PCM_ITS ---
Assessment & Plan (1) History of : COMMENT: X 2:1st:fTP; 2nd:Pre E, RLTCS scheduled 11/14 @ 7:30 with JV (2) History of gestational diabetes: COMMENT: 1st . Check 1 hr GCT NOB, early:1 hr GCT elevated 156. 3 hr GCTnl rpt 3 hr 28weeks: [] (3) History of pre-eclampsia: COMMENT: 2nd , emergent CS. baseline labs drawn. baby asa at 14 weeks. (4) Supervision of high risk , antepartum: COMMENT: PRR CHADD:11/18/22, girl, Vyla PC:Lakesha Garcia. Fiance:Eamon([facility] 1st together. (5) : QUALIFIERS: Weeks of gestation: 38 weeks Qualified Code(s): Z3A.38 - 38 weeks gestation of COMMENT: anatomy nl, NIPT low risk, carrier neg. (6) Obesity affecting : QUALIFIERS: Trimester: third trimester Qualified Code(s): O99.213 - Obesity complicating , third trimester COMMENT: 3 hr gct nl. (7) Positive GBS test: COMMENT: PCN at delivery (8) Anemia: COMMENT: Add Fe OTC once daily opposite PNV. Maternal Data Information CHADD Calculator Estimated Delivery Date Method Current WG Current Estimate 11/18/22 LMP (Certain) 39w 3d Final CHADD: 11/18/22 Final CHADD Source: LMP Gestational age: 39 weeks 3 days Details Operative Information Date of Procedure: 11/14/22 Pre-Operative Diagnosis: @ 39 weeks 3 days, gestational diabetes and prior sections Post-Operative Diagnosis: @ 39 weeks 3 days, gestational diabetes and prior sections Indications for : Repeat Elective Classification: Scheduled Procedure Type: low transverse hull sorter #1: Joan Mcmahon Type of Anesthesia: Spinal Anesthesiologist: Ryan Escobedo Antibiotic Given: Ancef 2 grams IV x1 Estimated Blood Loss: 500cc Findings Description of Procedure: The patient is a 27 y/of @ 39 weeks 3 days who presented for repeat C- section. Spinal anesthesia was placed without difficulty. Cheatham catheter was placed. The patient was placed in the dorsal supine position with leftward tilt. Patient was prepped and draped in the normal sterile fashion. Pfannenstiel skin incision was made with the scalpel and carried through to the underlying layer of fascia with the scalpel. Fascia was nicked in the midline and the incision extended laterally. The rectus bellies were dissected off superiorly and inferiorly with out complication both sharply and bluntly. The peritoneum was entered digitally. The incision was stretched and a low transverse uterine incision was made with the scalpel. The infant's head was delivered atraumatically followed by the anterior and posterior shoulders without complication the rest of the infant delivered. The cord was clamped and cut and the was handed off to awaiting nurse. The placenta was delivered spontaneously immediately following and was noted to be intact and have a three-vessel cord. The uterus was exteriorized cleared of all clots and debris, and the incision was closed in a double layer closure using #1Vicryl followed by a #1 Monocryl. The ovaries and fallopian tubes were noted to be within normal limits. The uterus was returned to the maternal abdomen and gutters were cleared of all clots and debris. The peritoneum was closed with 3-0 Monocryl in a running fashion. Gloves were changed prior to fascial closure. Fascia was closed with 0 PDS in a running fashion. Subcutaneous tissue was copiously irrigated and the skin was closed with 3-0 Monocryl in a subcuticular fashion. Mepilex dressing was applied without complication. Patient was taken to recovery in stable condition. It was discussed with the patient that based on the clinical information obtained during this encounter, combined with her history, at this time I would recommend repeat sections for future deliveries if further pregnancies are desired. weight 10lbs 1 oz Amniotic Membrane Rupture Type: Artificial Amniotic Fluid Description: Clear Placental Delivery Description: Expressed Placenta Disposition: [facility] Cord Vessel Description: 3 Vessels Cord Entanglement: None Infant A Gender: Female (1 minute): 8 (5 minute): 9 Delayed Cord Clamping: Yes Complications Risks of Surgery Discussed w/Patient: Bleeding, Anesthesia Risks, Infection, Need for Future C-Sections and Injury to surrounding structure(s) including bowel and bladder Multi Select Codes Urinary/Genital Urinary/Genital CPT Codes: 28162 delivery+PP Care([facility])
--- NOTE | 2022-11-14 08:40 | DCINST_ITS ---
Discharge Instructions Diet Discharge Diet: No restrictions Activity Discharge Activity: May Not Drive (for 2 weeks or while taking narcotic pain medications.), May Shower and May Take a Tub Bath (in 7 days.) May resume sexual activity in: 4-6 weeks Weight Bearing Status: Full weight bearing Lifting Restrictions: 20 pounds Dressing / Incision Call your doctor if your incision/area has: Continuous Slow Oozing, Sudden Increased Bleeding, Increased Pain/ Swelling, Increased Redness and Foul Smelling Discharge Call your doctor if you observe: Fever of 101 or Higher and Using more than 1 pad per hour Suture Line Care: Avoid Pulling/Pushing and Avoid Pinching/Bending Cleanse incision/area with: Soap & Water and Keep Dressing Clean & Dry Follow Up Care Please Follow Up With: Purvi Melgar DO When: Call [phone] to make an appointment for an incision check in 1-2 weeks. Test Results: Test results from this visit will be discussed in further detail at your follow- up appointment, if applicable. Discharge Plan Admission Admit Date/Time: 11/14/22 05:33 Primary Reason for Your Visit: section Attending Provider: Purvi Melgar Primary Care Provider: Elder Morrow Discharge Orders/Prescriptions Prescriptions: New naproxen 250 mg tablet 500 mg PO Q8H PRN PRN (Reason: Mild Pain ) Qty: 30 0RF oxycodone-acetaminophen [oxycodone-acetaminophen] 5-325 mg tablet 1 - 2 tab PO Q4H PRN PRN (Reason: Pain) 7 Days Qty: 30 0RF Continued prenat.vits,amy,sqc-ovap-yhtfb Tablet 1 tab PO DAILY ferrous sulfate 325 mg (65 mg iron) Capsule, Extended Release 325 mg PO DAILY Discontinued aspirin 81 mg Capsule 81 mg PO DAILY Referrals / Follow Up: Elder Morrow MD [Primary Care Provider] - Disposition Disposition (needs filled in before D/C Order can be placed): Home, Self Care
[2022-11-14] MEDS: Ketorolac 30 MG/ML Syringe IV ×3 (08:58→21:06)
[2022-11-14] MEDS: DiphenhydrAMINE 25 MG Capsule PO (09:32)
[2022-11-14] MEDS: Senna/Docusate Sodium 1 Tablet PO (11:38)
[2022-11-14] MEDS: Lactated Ringers 1,000 ML 100 ML IV (11:39)
[2022-11-14] MEDS: 0.9% Saline Lock 10 ML Syringe IV (21:06)
[2022-11-15] VITALS (8 sets, daily range): BP systolic 96–122; BP diastolic 52–75; PULSE 90–945; RESP 14–17; TEMP 36–36.7; O2SAT 95–98
[2022-11-15] MEDS: Ketorolac 30 MG/ML Syringe IV (03:10)
[2022-11-15] MEDS: 0.9% Saline Lock 10 ML Syringe IV (03:11)
[2022-11-15 05:11] LABS: Hematocrit 29.8 % (37-47); Mean Corp Hgb Conc 30.2 g/dL (32-36); Mean Corpuscular Hgb 28.8 pg (27.0-32.0); Mean Corpuscular Volume 95.2 fL (81-99); Mean Platelet Vol. 11.2 fl (6.2-12.0); Platelet Count 128 K/mm3 (150-450); RBC Distribution Width CV 14.1 % (11.6-14.6); RBC Distribution Width SD 49.1 fl (35.1-43.9); Red Blood Count 3.13 M/mm3 (4.2-5.4); White Blood Count 10.6 K/mm3 (4.4-11.0)
[2022-11-15] MEDS: Acetaminophen 500 MG Tablet 1000 MG PO ×4 (05:32→23:49)
--- NOTE | 2022-11-15 07:49 | PCM.DC.SUM ---
Providers Date of Admission: 11/14/22 Primary Care Physician: Dr. Elder Morrow MD Reason For Visit: REPEAT C SECTION Diagnosis Discharge Diagnosis (1) History of : Status: Acute Code(s): Z98.891 - History of uterine scar from previous surgery (2) History of gestational diabetes: Status: Acute Code(s): Z86.32 - Personal history of gestational diabetes (3) History of pre-eclampsia: Status: Acute Code(s): Z87.59 - Personal history of other complications of , childbirth and the puerperium (4) Supervision of high risk , antepartum: Status: Acute Code(s): O09.90 - Supervision of high risk , unspecified, unspecified trimester (5) : Status: Acute Code(s): Z34.90 - Encounter for supervision of normal , unspecified, unspecified trimester Qualifiers: Weeks of gestation: 38 weeks Qualified Code(s): Z3A.38 - 38 weeks gestation of (6) Obesity affecting : Status: Acute Code(s): O99.210 - Obesity complicating , unspecified trimester Qualifiers: Trimester: third trimester Qualified Code(s): O99.213 - Obesity complicating , third trimester (7) Positive GBS test: Status: Acute Code(s): B95.1 - Streptococcus, group B, as the cause of diseases classified elsewhere (8) Anemia: Status: Acute Code(s): D64.9 - Anemia, unspecified (9) Status post section: Status: Acute Code(s): Z98.891 - History of uterine scar from previous surgery Plan plan for repeat section- ERAS protocol ordered SCDs 2 grams ancef plan for dc after 24-48 hrs if both mom and baby are stable per nurses, FOB active funny h/o THC use, will run tox screen per their assessment and protocol with h/o drug use. Medications at Discharge Home Medications prenat.vits,amy,ifl-rrwm-sicfj 1 tab PO DAILY 04/11/22 ferrous sulfate 325 mg (65 mg iron) capsule,extended release 325 mg PO DAILY 11/03/22 naproxen 250 mg tablet 500 mg PO Q8H PRN PRN Mild Pain #30 TABLETS 11/14/22 oxycodone-acetaminophen 5 mg-325 mg tablet 1 - 2 tab PO Q4H PRN PRN Pain 7 days #30 tabs 11/14/22 Hospital Course Operations section Summary of Care Provided Minutes Spent on Discharge: 15 Hospital Course: The patient was admitted on for a scheduled repeat section. She had gestational diabetes and delivered a 10 lb 1 oz baby girl. Her HD #1 was unremarkable and she recovered without complications. on post op day #1 Patient doing well without complaints. Tolerating PO. Ambulating and voiding without difficulty. Feeding well. Denies chest pain, shortness of breath, calf pain/swelling, fevers, chills, lightheadedness. Her baby was cleared from a pediatric stand point for discharge to home and she requested the same Physical Exam HEENT normocephalic Resp normal respiratory effort and normal air movement GI soft to palpation, non-tender and non-distended Rectal Exam: other Other Details: Incision is clean, dry, and intact no CVA tenderness Extremity normal to inspection General Extremity: edema bilateral (trace ) Weight / BMI Weight Weight: 236 lb Body Mass Index (BMI) 40.5 ABG / Lab / Microbiology Data Result Diagrams: 11/15/22 04:56 Laboratory: Laboratory Results - last 24 hr 11/15/22 04:56: WBC 10.6, RBC 3.13 L, Hgb 9.0 L, Hct 29.8 L, MCV 95.2, MCH 28.8, MCHC 30.2 L, RDW Std Deviation 49.1 H, RDW Coeff of [place] 14.1, Plt Count 128 L, MPV 11.2 D/C Instructions Discharge Diet: No restrictions May resume sexual activity in: 4-6 weeks Weight Bearing Status: Full weight bearing Call your doctor if your incision/area has: Continuous Slow Oozing, Sudden Increased Bleeding, Increased Pain/ Swelling, Increased Redness and Foul Smelling Discharge Call your doctor if you observe: Fever of 101 or Higher and Using more than 1 pad per hour Suture Line Care: Avoid Pulling/Pushing and Avoid Pinching/Bending Cleanse incision/area with: Soap & Water and Keep Dressing Clean & Dry Please Follow Up With: Purvi Melgar, When: Call [phone] to make an appointment for an incision check in 1-2 weeks. Meaningful Use Info Meaningful Use Diagnoses (Choose all that apply): None applicable Discharge Plan Admission Admit Date/Time: 11/14/22 05:33 Primary Reason for Your Visit: section Attending Provider: Purvi Melgar Primary Care Provider: Elder Morrow Discharge Orders/Prescriptions Prescriptions: New naproxen 250 mg tablet 500 mg PO Q8H PRN PRN (Reason: Mild Pain ) Qty: 30 0RF oxycodone-acetaminophen [oxycodone-acetaminophen] 5-325 mg tablet 1 - 2 tab PO Q4H PRN PRN (Reason: Pain) 7 Days Qty: 30 0RF Continued prenat.vits,amy,syf-rpip-abogi Tablet 1 tab PO DAILY ferrous sulfate 325 mg (65 mg iron) Capsule, Extended Release 325 mg PO DAILY Discontinued aspirin 81 mg Capsule 81 mg PO DAILY Referrals / Follow Up: Elder Morrow MD [Primary Care Provider] - Disposition Disposition (needs filled in before D/C Order can be placed): Home, Self Care
[2022-11-15] MEDS: Senna/Docusate Sodium 1 Tablet PO (10:20)
[2022-11-15] MEDS: Naproxen 500 MG Tablet PO ×2 (10:20→18:03)
[2022-11-15] MEDS: oxyCODONE 5 MG Tablet PO ×3 (11:57→20:41)
[2022-11-16] MEDS: Naproxen 500 MG Tablet PO ×2 (02:06→09:41)
[2022-11-16 02:10] VITALS: BP 122/75; PULSE 86; RESP 16; TEMP 36.3
[2022-11-16] MEDS: Acetaminophen 500 MG Tablet 1000 MG PO (06:03)
[2022-11-16 09:28] VITALS: BP 146/79; PULSE 105; RESP 16; TEMP 37.3; O2SAT 97
[2022-11-16] MEDS: Senna/Docusate Sodium 1 Tablet PO (09:41)
--- NOTE | 2022-11-16 09:44 | PCM.PN.OB ---
Subjective Subjective Patient is laying in bed comfortably without complaints. She states that she slept on an off during the night. Lochia is mild and pain is minimal. She wanted to go home yesterday but ended up staying an extra night for nursing support. Objective Data Objective Data Vital Signs: Vital Signs Temp Pulse Resp BP Pulse Ox O2 Del Method 99.1 F 105 H 16 146/79 H 97 Room Air 11/16/22 09:28 11/16/22 09:28 11/16/22 09:28 11/16/22 09:28 11/16/22 09:28 11/16/22 09:28 Oxygen Delivery Method Room Air Weight: 236 lb Body Mass Index (BMI) 40.5 Intake & Output: Intake and Output for Last 24 Hours 11/14/22 11/15/22 11/16/22 23:59 23:59 23:59 Intake Total 1891.5 / 1891.5 Output Total 400 / 400 850 / 850 Balance 1491.5 / 1491.5 -850 / -850 Lab / Micro Data Result Diagrams: 11/15/22 04:56 ROS Constitutional Constitutional: Reports systems reviewed and no addt'l complaints, except as documented Cardiovascular Cardiovascular: Denies chest pain, dizziness, dyspnea or irregular heart rhythm Respiratory/Chest Respiratory/Chest: Denies cough, pain on inspiration or shortness of breath at rest Gastrointestinal Gastrointestinal: Denies abdominal pain, nausea or vomiting Genitourinary Genitourinary: Denies burning urination Musculoskeletal Musculoskeletal: Denies muscle cramps, muscle spasms or muscle weakness Neurologic Neurologic: Denies confusion, dizziness, headache(s) or lack of coordination Psychiatric Psychiatric: Denies anxiety, behavioral changes or depression Physical Exam HEENT normocephalic Resp normal respiratory effort and normal air movement GI soft to palpation, non-tender and non-distended Rectal Exam: other Other Details: Incision is clean, dry, and intact no CVA tenderness Extremity normal to inspection General Extremity: edema bilateral (trace ) Assessment & Plan (1) Status post section: COMMENT: rpt cs 11/14/22 baby girl jessica- JV PLAN: s/p PPD # 2 1. routine post delivery care 2. breast feeding- support given 3. rh positive 4. rubella immune 5. dc to home see dc summary addendum
== END 2022-11-16 11:15 | disposition home or self-care (01) | DRG 540 ==
PROVIDERS: Admitting Provider Obstetrics & Gynecology; PCP Family Medicine; Visit Provider Obstetrics & Gynecology
PROC: 10D00Z1 Extraction of Products of Conception, Low, Open Approach (ICD-10-PCS; CPT 59514; principal; 2022-11-14 06:55)
DX: O34.211 Maternal care for low transverse scar from previous cesarean delivery (principal); O99.324 Drug use complicating childbirth; F12.90 Cannabis use, unspecified, uncomplicated; O99.02 Anemia complicating childbirth; O99.824 Streptococcus B carrier state complicating childbirth; O24.429 Gestational diabetes mellitus in childbirth, unspecified control; O99.214 Obesity complicating childbirth; E66.9 Obesity, unspecified; Z79.82 Long term (current) use of aspirin; Z3A.39 39 weeks gestation of pregnancy; Z37.0 Single live birth
CPT/HCPCS: 59025; 80307; 85025; 85027; 86850; 86900; 86901; 99218; J7120; A4216; G0378

== ENCOUNTER → 2023-05-30 | Outpatient (CLI) | payer MEDICAID, SELFPAY ==
[2023-06-02 21:07] LABS: Chlamydia By Nucleic Acid AMP Negative (Negative); Gonococcus By Nucleic Acid AMP Negative (Negative)
== END | disposition home or self-care (01) ==
LOC: LABSPEC 16:31
PROVIDERS: PCP Family Medicine; Referring Provider Registered Nurse; Visit Provider Registered Nurse
DX: O24.419 Gestational diabetes mellitus in pregnancy, unspecified control (principal); Z87.59 Personal history of other complications of pregnancy, childbirth and the puerperium; Z3A.00 Weeks of gestation of pregnancy not specified
CPT/HCPCS: 87086; 87088; 87491; 87591

== ENCOUNTER → 2023-06-02 | Outpatient (CLI) | payer MEDICAID, SELFPAY ==
[2023-06-02 16:44] LABS: Absolute Lymphocyte Count 2.42 X10^3/uL (0.83-4.51); Absolute Neutrophil Count 5.8 X10^3/uL (2.0-7.7); Basophil# 0.03 X10^3/uL; Basophil% 0.3 % (0-1); Eosinophil# 0.06 X10^3/uL; Eosinophils% 0.7 % (0-5); Hematocrit 39.4 % (37-47); Hemoglobin 13.5 g/dL (12.0-15.0); Lymphocyte # 2.42 X10^3/ul (0.83-4.51); Lymphocyte % 27.1 % (19-41); Mean Corp Hgb Conc 34.3 g/dL (32-36); Mean Corpuscular Hgb 32.5 pg (27.0-32.0); Mean Corpuscular Volume 94.7 fL (81-99); Mean Platelet Vol. 10.1 fl (6.2-12.0); Monocyte# 0.59 X10^3/uL; Monocyte% 6.6 % (0-10); NRBC Flagged by Analyzer 0 % (0-5); Neutrophil # 5.81 X10^3/uL (2.7-7.7); Neutrophil % 65.1 % (47-70); Platelet Count 196 K/mm3 (150-450); RBC Distribution Width CV 12.8 % (11.6-14.6); RBC Distribution Width SD 44.6 fl (35.1-43.9); Red Blood Count 4.16 M/mm3 (4.2-5.4); White Blood Count 8.9 K/mm3 (4.4-11.0)
[2023-06-02 16:55] LABS: Protein, Urine (Random) 10.7 mg/dL (<11.9); Protein:Creat Ratio 156 mg/g CRE (0-200)
[2023-06-02 17:13] LABS: ALB/GLOB Ratio 0.6 RATIO (0.9-2.4); AST(SGOT) 12 U/L (15-37); Alanine Aminotransfer ALT/SGPT 13 U/L (13-56); Albumin, Serum 2.8 g/dL (3.2-5.0); Alkaline Phosphatase 71 U/L (45-117); Anion Gap 4 (5-15); BUN 10 mg/dL (7-18); BUN/Creat Ratio 19.7 RATIO (10-20); Calcium,Total 9.5 mg/dL (8.5-10.1); Chloride 105 mmol/L (98-107); Creatinine, Serum 0.51 mg/dL (0.55-1.02); EST Glomerular Filtration Rate 155 mL/min (>60); Est Glom Filt Rate - Afr Amer 188 mL/min (>60); Globulin 4.5 g/dL (2.2-4.2); Glucose 78 mg/dL (74-106); Protein, Total 7.3 g/dL (6.4-8.2); Sodium Level 135 mmol/L (136-145)
[2023-06-02 17:16] LABS: NATERA MAILED SPECIMEN
[2023-06-02 17:50] LABS: HIV - WCH Non-Reactive (Nonreactive); Hepatitis B Surface Antigen Non-Reactive (Nonreactive); Hepatitis C Antibody Non-Reactive (Nonreactive); Rubella IgG Reactive (Nonreactive); Syphilis Antibodies Non-reactive
== END | disposition home or self-care (01) ==
LOC: LAB 16:04
PROVIDERS: PCP Family Medicine; Referring Provider Registered Nurse; Visit Provider Registered Nurse
DX: O24.419 Gestational diabetes mellitus in pregnancy, unspecified control (principal); Z87.59 Personal history of other complications of pregnancy, childbirth and the puerperium; Z3A.00 Weeks of gestation of pregnancy not specified
CPT/HCPCS: 36415; 80053; 82570; 84156; 85025; 86703; 86762; 86780; 86803; 86850; 86900; 86901; 87340

== ENCOUNTER → 2023-06-16 | Outpatient (CLI) | payer MEDICAID, SELFPAY ==
[2023-06-16 11:04] LABS: Glucose Challenge Gest 1H 50g 149 mg/dL (70-140)
== END | disposition home or self-care (01) ==
LOC: LAB 09:32
PROVIDERS: PCP Family Medicine; Referring Provider Registered Nurse; Visit Provider Registered Nurse
DX: O24.419 Gestational diabetes mellitus in pregnancy, unspecified control (principal); Z87.59 Personal history of other complications of pregnancy, childbirth and the puerperium; Z3A.00 Weeks of gestation of pregnancy not specified
CPT/HCPCS: 36415; 82950

== ENCOUNTER → 2023-06-30 | Outpatient (CLI) | payer MEDICAID, SELFPAY ==
[2023-06-30 09:29] LABS: Glucose GTT-Gestation. Fasting 96 mg/dL (<105)
[2023-06-30 10:19] LABS: Glucose GTT-Gestational 1 Hr 200 mg/dL (<190)
[2023-06-30 11:27] LABS: Glucose GTT-Gestational 2 Hr 180 mg/dL (<165)
[2023-06-30 12:21] LABS: Glucose GTT-Gestational 3 Hr 73 L (<145)
== END | disposition home or self-care (01) ==
LOC: LAB 08:02
PROVIDERS: PCP Family Medicine; Referring Provider Registered Nurse; Visit Provider Registered Nurse
DX: Z13.1 Encounter for screening for diabetes mellitus (principal)
CPT/HCPCS: 36415; 82951; 82952

== ENCOUNTER 2023-09-16 14:30 | Outpatient (RCR) | payer MEDICAID, SELFPAY | END 2023-09-30 23:59 | LOC: DC 14:30 | PROVIDERS: PCP Family Medicine; Referring Provider Registered Nurse; Visit Provider Registered Nurse | DX: O24.419 Gestational diabetes mellitus in pregnancy, unspecified control (principal); Z3A.00 Weeks of gestation of pregnancy not specified | CPT/HCPCS: 97802; 97803 ==

== ENCOUNTER → 2023-09-16 | Outpatient (CLI) | payer MEDICAID, SELFPAY ==
[2023-09-16 16:04] LABS: Absolute Lymphocyte Count 1.85 X10^3/uL (0.83-4.51); Absolute Neutrophil Count 5.2 X10^3/uL (2.0-7.7); Basophil# 0.01 X10^3/uL; Basophil% 0.1 % (0-1); Eosinophil# 0.04 X10^3/uL; Eosinophils% 0.5 % (0-5); Hematocrit 36.7 % (37-47); Hemoglobin 11.7 g/dL (12.0-15.0); Lymphocyte # 1.85 X10^3/ul (0.83-4.51); Lymphocyte % 23.9 % (19-41); Mean Corp Hgb Conc 31.9 g/dL (32-36); Mean Corpuscular Hgb 31.5 pg (27.0-32.0); Mean Corpuscular Volume 98.9 fL (81-99); Mean Platelet Vol. 10.4 fl (6.2-12.0); Monocyte% 6.5 % (0-10); NRBC Flagged by Analyzer 0 % (0-5); Neutrophil # 5.24 X10^3/uL (2.7-7.7); Neutrophil % 67.8 % (47-70); Platelet Count 151 K/mm3 (150-450); RBC Distribution Width CV 12.5 % (11.6-14.6); RBC Distribution Width SD 45.1 fl (35.1-43.9); Red Blood Count 3.71 M/mm3 (4.2-5.4); White Blood Count 7.7 K/mm3 (4.4-11.0)
[2023-09-16 16:13] LABS: Protein:Creat Ratio 134 mg/g CRE (0-200)
[2023-09-16 16:17] LABS: ALB/GLOB Ratio 0.6 RATIO (0.9-2.4); AST(SGOT) 10 U/L (15-37); Alanine Aminotransfer ALT/SGPT 15 U/L (13-56); Albumin, Serum 2.4 g/dL (3.2-5.0); Alkaline Phosphatase 64 U/L (45-117); Anion Gap 7 (5-15); BUN 6 mg/dL (7-18); Calcium,Total 8.8 mg/dL (8.5-10.1); Chloride 110 mmol/L (98-107); Creatinine, Serum 0.46 mg/dL (0.55-1.02); EST Glomerular Filtration Rate 173 mL/min (>60); Est Glom Filt Rate - Afr Amer 209 mL/min (>60); Globulin 4.2 g/dL (2.2-4.2); Glucose 115 mg/dL (74-106); Potassium 3.7 mmol/L (3.5-5.1); Protein, Total 6.6 g/dL (6.4-8.2); Sodium Level 140 mmol/L (136-145)
[2023-09-16 20:49] LABS: HIV - WCH Non-Reactive (Nonreactive); Syphilis Antibodies Non-reactive
== END | disposition home or self-care (01) ==
LOC: LAB 15:18
PROVIDERS: Registered Nurse; PCP Family Medicine; Visit Provider Nurse Practitioner Women's Health
DX: O24.313 Unspecified pre-existing diabetes mellitus in pregnancy, third trimester (principal); Z3A.38 38 weeks gestation of pregnancy
CPT/HCPCS: 36415; 80053; 82570; 84156; 85025; 86703; 86780; 97803

== ENCOUNTER → 2023-10-20 | Outpatient (CLI) | payer MEDICAID, SELFPAY ==
--- NOTE | 2023-10-20 14:20 | US_ITS ---
STUDY: SECOND AND THIRD TRIMESTER OBSTETRICAL ULTRASOUND - LIMITED REASON FOR EXAM: Female, 28 years old growth PRIOR ULTRASOUND: Prior study dated: 10/23/2022 TECHNIQUE: Transabdominal pelvic ultrasound. TECHNICAL QUALITY: Adequate. FINDINGS: There is a single intrauterine fetus. The fetus is in a cephalic presentation. There is demonstrated cardiac activity with a heart rate of 144 bpm. There is a normal amniotic fluid volume. The largest amniotic fluid pocket measures 7.5 cm. The amniotic fluid index (ALEX) is 14.04 cm. The placenta is right lateral in location and is not low lying. There are Grade 1 placental changes. The cervix measures 4.4 cm in length. BIOMETRY: BPD: 8.22 cm: 33 weeks, 0 days HC: 31.48 cm: 35 weeks, 2 days AC: 30.42 cm: 34 weeks, 3 days FL: 6.05 cm: 31 weeks, 3 days Age by LMP: 33 weeks, 0 days. CHADD by LMP: 12/08/2023. age by current US: 34 weeks, 0 days. CHADD by current US: 12/01/2023. Estimated weight: 2194 grams, +/- 329 grams, 54 percentile. US/OB Limited With Biometrics IMPRESSION: Single live intrauterine with gestational age by ultrasound of 34 weeks 0 days. Electronically Signed: Devon Krueger MD at 16:15 EST ,
== END | disposition home or self-care (01) ==
LOC: OPUS 14:20
PROVIDERS: PCP Family Medicine; Referring Provider Nurse Practitioner Women's Health; Visit Provider Nurse Practitioner Women's Health
DX: O24.319 Unspecified pre-existing diabetes mellitus in pregnancy, unspecified trimester (principal); Z3A.00 Weeks of gestation of pregnancy not specified
CPT/HCPCS: 76816

== ENCOUNTER 2023-11-02 13:30 | Outpatient (CLI) | payer MEDICAID, SELFPAY ==
[2023-11-02] VITALS (7 sets, daily range): BP systolic 132–134; BP diastolic 65–69; PULSE 85–94; TEMP 36.6; O2SAT 94–96; BMI 41.6
--- NOTE | 2023-11-03 18:19 | OB.TRI.HP_ITS ---
HPI - General General Date of Admission: 11/02/23 Date of Service: 11/02/23 Chief Complaint: scheduled nst HPI Narrative MEAGHAN APONTE, is a 28 F who presents at 34+6 for scheduled NST for pre- gestational diabetes. +FM, denies lof/vb/ctx. Maternal Data Information CHADD Calculator Estimated Delivery Date Method Current WG Current Estimate 12/08/23 Ultrasound #1 35w 0d Other Estimates 11/17/23 LMP (Uncertain) 38w 0d PFSH PFSH Medical History Anemia Gestational diabetes Gestational HTN Headache History of pre-eclampsia Pre-eclampsia Superficial varicosities Supervision of high risk , antepartum Home Medications prenat.vits,amy,zpi-ujyo-usjvh 1 tab PO DAILY 04/11/22 [History Last Taken 11/02/23 06:30 1 TAB] ferrous sulfate 325 mg (65 mg iron) capsule,extended release 325 mg PO DAILY 11/03/22 [History Last Taken 11/01/23 07:00 325 mg] blood sugar diagnostic (Blood Glucose Test strips) #120 ea 07/01/23 [Rx Last Taken Unknown] lancets #200 ea 07/01/23 [Rx Last Taken Unknown] blood-glucose meter (MR Presta Ultra2 Meter) #1 ea 07/21/23 [Rx Last Taken Unknown] metformin 500 mg tablet 500 mg PO BID #60 tabs 10/13/23 [Rx Last Taken 11/02/23 06:30 500 mg] aspirin 81 mg chewable tablet (Harsha Chewable Low Dose Aspirin) 81 mg PO DAILY 11/02/23 [History Last Taken 11/02/23 06:30 81 mg] Allergy/AdvReac Type Severity Reaction Status Date / Time No Known Allergies Allergy Verified 11/03/23 11:16 Surgical History History of Status post section Social History adopted: No household members: significant other number of children: 2 current occupational status: employed current occupation: [employer] pets and animals: Yes (avoid litter box) pets and animals: cat(s) Smoking Status: Never smoker alcohol intake: never substance use type: does not use do you feel safe at home: Yes additional social history: Chandu Knutson History 3 Elective abortions Hx Para 3 Spontaneous abortions Hx # Term Pregnancies Ectopic pregnancies Hx # Pregnancies Multiple births # of living children 3 Past Pregnancies Del. Date Name GA/Weeks Outcome Route Bth Weight Gen Labor Lgth Anesthesia Del Locatn Provider FOB Unknown 05/30/2016 Verik 39 live - full term 8# 12oz Male 26 hr epidural [place] 12/26/17 Vandon 38 live - full term 8# 15oz Male epidural [facility] 11/14/22 Vyla 39 live - full term 10# 1oz Female spinal [facility] Purvi Mendy Serrano [place] Delivery Date: Last Updated by: Thi Vo NP, AREA SUPERVISOR-C FTP. GDM Delivery Date: 12/26/17 Last Updated by: Thi Vo NP, AREA SUPERVISOR-C Emergent CS due Pre E, severe features. Delivery Date: 11/14/22 Last Updated by: Phoebe Mckeon repeat . Visit Details Expected Delivery Route/Plan repeat c/s with tubal Plans Covid status: unvax Flu vaccine: declines Tdap vaccine: Rhogam: NA LARC form signed: yes Problem list reviewed and updated with the most current plan of care details and appropriate orders placed. Relevant counseling for the gestational age provided. Continue routine care and follow up unless otherwise noted in visit notes/problem list details OB Flowsheet Initial Weight: 284 lb Date -?-?-?-?-?-?-?-?-?-?-?-?- EGA Weight BP Urine Prot -?-?-?-?-?-?-?-?-?-?-?-?- Glucose FHR FuHt Pres Dilation -?-?-?-?-?-?-?-?-?-?-?-?- Effaced St Visit Note 05/30/23 -?-?-?-?-?-?-?-?-?-?-?-?- 12w 4d 284 lb (+0 oz) 119/84 -?-?-?-?-?-?-?-?-?-?-?-?- 160 -?-?-?-?-?-?-?-?-?-?-?-?- CRL=55.1, LMP no t con w/CRL, due date changed. early glucola. baseline [facility] labs. accepts genetic testing LC-CRL=55.1, LMP not con w/C RL, due date changed to , reviewed with SM. early glucola. baseline [facility] labs. accepts genetic testing. 06/23/23 -?-?-?-?-?-?-?-?-?-?-?-?- 16w 0d 227 lb (-57 lb) 122/84 Negative -?-?-?-?-?-?-?-?-?-?-?-?- Negative 156 -?-?-?-?-?-?-?-?-?-?-?-?- MH-No VB. Feels well. 3hr GTT scheduled in 1 week. 07/21/23 -?-?-?-?-?-?-?-?-?-?-?-?- 20w 0d 224 lb 8 oz (-59 lb 8 oz) 139/81 Negative -?-?-?-?-?-?-?-?-?-?-?-?- Negative 145 -?-?-?-?-?-?-?-?-?-?-?-?- LC- no vb/crampi ng. some flutters. normal anatomy. fastings 103. obtaining endo consult for pre-gestational diabetes. LC- no vb/cramping. some flu tters. normal anatomy. fastings 103. obtaining endo consult for pre-gestational diabetes, has not obtained appt yet. nutrition counseling provided today. will obtain 4x glucose checks/day. education provided. if fastings not improved in 2 weeks will need to start medication management, plan reviewed with [facility] agrees and agrees. 09/08/23 -?-?-?-?-?-?-?-?-?-?-?-?- 27w 0d 237 lb 2 oz (-46 lb 14 oz) 132/84 Negative -?-?-?-?-?-?-?-?-?-?-?-?- Negative 145 29 -?-?-?-?-?-?-?-?-?-?-?-?- MH-Good FM. No V B, LOF. Saw dietitian today and discussed ways to manage FBS. Growth US ordered. 09/29/23 -?-?-?-?-?-?-?-?-?-?-?-?- 30w 0d 238 lb 2 oz (-45 lb 14 oz) 129/77 Negative -?-?-?-?-?-?-?-?-?-?-?-?- Negative 155 32 -?-?-?-?-?-?-?-?-?-?-?-?- fasting all unde r 95, some pp 125, modifying diet still with drill press operator. will start nst at 32 weeks. will call if fasting bs are elevated. r/b of GDM reviewed today. LC-fasting all under 95, lili e pp 125, 95% under 120. modifying diet still with drill press operator. will start nst at 32 weeks. will call if fasting bs are elevated. r/b of GDM reviewed today. 10/13/23 -?-?-?-?-?-?-?-?-?-?-?-?- 32w 0d 241 lb 2 oz (-42 lb 14 oz) 127/73 Negative -?-?-?-?-?-?-?-?-?-?-?-?- Negative 140 32 -?-?-?-?-?-?-?-?-?-?-?-?- LC- all but 3 fa sting under 95. will start metformin 500mg bid. d/w [place] agrees with plan . start 2x weekly nst. 10/20/23 -?-?-?-?-?-?-?-?-?-?-?-?- 33w 0d 243 lb 8 oz (-40 lb 8 oz) 115/72 Negative -?-?-?-?-?-?-?-?-?-?-?-?- Negative 145 -?-?-?-?-?-?-?-?-?-?-?-?- [place]- pt had growt h scan today that is pending. she wants a tubal with her section. title 19 signed today. pt has not seen a physician this and is for a rpt section and not yet scheduled. recommend sees either Dr. chandra or myself as much as possible going forward. 10/27/23 -?-?-?-?-?-?-?-?-?-?-?-?- 34w 0d 240 lb 4 oz (-43 lb 12 oz) 109/72 Negative -?-?-?-?-?-?-?-?-?-?-?-?- Negative 140 36 -?-?-?-?-?-?-?-?-?-?-?-?- JV- reactive NST . Growth 54th% 11/03/23 -?-?-?-?-?-?-?-?-?-?-?-?- 35w 0d 242 lb 2 oz (-41 lb 14 oz) 122/70 Negative -?-?-?-?-?-?-?-?-?-?-?-?- Negative 140 -?-?-?-?-?-?-?-?-?-?-?-?- MH: NST only and nonreassuring with questionable variable decels. BPP today NST FHR Rate Baby A Baseline: 120 Variability:: Moderate Accelerations:: 15 x 15 Decelerations:: None NST Reactive:: Yes FHR Category:: Category I Uterine Activity:: none Assessment & Plan (1) Pre-existing diabetes mellitus during : QUALIFIERS: Trimester: second trimester Qualified Code(s): O24.312 - Unspecified pre-existing diabetes mellitus in , second trimester COMMENT: start NSTs at 34 weeks referral dietitian:suggestions given for managing FBS. Will check X 1 week and call if >80% >95. All 2 hr pp <120. PLAN: Plan Patient presents for triage evaluation secondary to scheduled NST. pt moving and had questionable deceleration vs maternal brain picker. extended monitoring demonstrated reassuring status. FHT: Moderate variability reactive no decelerations category I tracing [place]: Contractions Assessment and plan: Reactive NST, reassuring maternal and status patient discharged to home to follow-up in office, declines BPP as she needed to leave to get other children, kick counts reviewed. See problem list details for additional plan information. Charges/Coding Procedures Urinary/Genital 52xxx-59xxx: 55084-32 non-stress test Interp Multi Select Codes Urinary/Genital Urinary/Genital CPT Codes: 75856-47 non-stress test Interp
== END 2023-11-02 15:45 | disposition home or self-care (01) ==
LOC: WPOUT 13:31 → WP 13:32
PROVIDERS: PCP Family Medicine; Visit Provider Registered Nurse
DX: O24.113 Pre-existing type 2 diabetes mellitus, in pregnancy, third trimester (principal); Z3A.34 34 weeks gestation of pregnancy; O13.3 Gestational [pregnancy-induced] hypertension without significant proteinuria, third trimester; Z79.84 Long term (current) use of oral hypoglycemic drugs; Z79.82 Long term (current) use of aspirin
CPT/HCPCS: 59025; 59050

== ENCOUNTER → 2023-11-03 | Outpatient (CLI) | payer MEDICAID, SELFPAY ==
--- NOTE | 2023-11-03 12:07 | US_ITS ---
STUDY: OBSTETRICAL ULTRASOUND - BIOPHYSICAL PROFILE REASON FOR EXAM: Female, 28 years old non reactive stress test LMP: March 03, 2023. PRIOR ULTRASOUND: Comparison is made with prior study October 20, 2023 TECHNIQUE: Transabdominal TECHNICAL QUALITY: Adequate. FINDINGS: There is a single intrauterine fetus. The fetus is in a cephalic presentation. There is demonstrated cardiac activity with a heart rate of 144 bpm. There is a normal amniotic fluid volume. The largest amniotic fluid pocket measures 4.8 cm. The amniotic fluid index (ALEX) is cm. The placenta is 11.8 There are Grade 1 placental changes. Age by LMP: 35 weeks, 0 days. CHADD by LMP: December 08, 2023. BIOPHYSICAL PROFILE: Breathing Movements (FBM): 2 Gross Body Movements (GBM): 2 Tone (FT): 2 Amniotic Fluid Volume (AFV): 2 TOTAL SCORE: US/Biophysical Prof W/O Non Stres IMPRESSION: Normal biophysical profile of 07/08. Electronically Signed: José Luis Santiago MD at 14:45 EST ,
== END | disposition home or self-care (01) ==
LOC: US 12:06
PROVIDERS: PCP Family Medicine; Referring Provider Obstetrics & Gynecology; Visit Provider Obstetrics & Gynecology
DX: O28.8 Other abnormal findings on antenatal screening of mother (principal); Z3A.00 Weeks of gestation of pregnancy not specified
CPT/HCPCS: 76819

== ENCOUNTER → 2023-11-10 | Outpatient (CLI) | payer MEDICAID, SELFPAY | END | disposition home or self-care (01) | LOC: LABSPEC 15:46 | PROVIDERS: PCP Family Medicine; Visit Provider Obstetrics & Gynecology | DX: O09.90 Supervision of high risk pregnancy, unspecified, unspecified trimester (principal); Z3A.00 Weeks of gestation of pregnancy not specified | CPT/HCPCS: 87081 ==

== ENCOUNTER 2023-11-26 16:11 | Inpatient (IN) | payer MEDICAID, SELFPAY ==
[2023-11-26] VITALS (14 sets, daily range): BP systolic 101–136; BP diastolic 53–90; PULSE 72–101; RESP 14–18; TEMP 36.2; O2SAT 94–98; BMI 43.4
[2023-11-26] MEDS: Lactated Ringers 1,000 ML 999 ML IV (16:10)
--- NOTE | 2023-11-26 16:26 | HP.PCM.OB_ITS ---
HPI - General General Date of Admission: 11/26/23 HPI Narrative MEAGHAN APONTE, is a 28 Y/O @ 38 WEEKS 2 DAYS who presents to L&D from my office- today when she was having a routine nst the heart rate dropped to the 70's and remained there for 3 minutes until I entered the NST room. L&D was called and she was urgently rushed to the OR for a section. When she got to the OR the heart rate was back up to 140 but the decision was made to proceed with delivery. Maternal Data Information CHADD Calculator Estimated Delivery Date Method Current WG Current Estimate 12/08/23 Ultrasound #1 38w 2d Other Estimates 11/17/23 LMP (Uncertain) 41w 2d PFSH PFS Medical History Anemia Gestational diabetes Gestational HTN Headache History of pre-eclampsia Pre-eclampsia Superficial varicosities Supervision of high risk , antepartum Home Medications prenat.vits,amy,onq-naou-teybp 1 tab PO DAILY 04/11/22 [History Last Taken 11/02/23 06:30 1 TAB] ferrous sulfate 325 mg (65 mg iron) capsule,extended release 325 mg PO DAILY 11/03/22 [History Last Taken 11/01/23 07:00 325 mg] blood sugar diagnostic (Blood Glucose Test strips) #120 ea 07/01/23 [Rx Last Ta ricardo Unknown] lancets #200 ea 07/01/23 [Rx Last Taken Unknown] blood-glucose meter (OneTouch Ultra2 Meter) #1 ea 07/21/23 [Rx Last Taken Unknown] metformin 500 mg tablet 500 mg PO BID #60 tabs 10/13/23 [Rx Last Taken 11/02/23 06:30 500 mg] aspirin 81 mg chewable tablet (Harsha Chewable Low Dose Aspirin) 81 mg PO DAILY 11/02/23 [History Last Taken 11/02/23 06:30 81 mg] Allergy/AdvReac Type Severity Reaction Status Date / Time No Known Allergies Allergy Verified 11/26/23 15:36 Surgical History History of Status post section Social History adopted: No household members: significant other number of children: 2 current occupational status: employed current occupation: [employer] pets and animals: Yes (avoid litter box) pets and animals: cat(s) Smoking Status: Never smoker alcohol intake: never substance use type: does not use do you feel safe at home: Yes additional social history: Chandu Knutson History 3 Elective abortions Hx Para 3 Spontaneous abortions Hx # Term Pregnancies Ectopic pregnancies Hx # Pregnancies Multiple births # of living children 3 Past Pregnancies Del. Date Name GA/Weeks Outcome Route Bth Weight Infant Gen Labor Lgth Anesthesia Del Locatn Provider FOB Unknown 05/30/2016 Verik 39 live - full term 8# 12oz Male 26 hr epidural P[place] 12/26/17 Vandon 38 live - full term 8# 15oz Male epidural [facility] 11/14/22 Vyla 39 live - full term 10# 1oz Female spinal [facility] Purvi Kauffmancom Delivery Date: Last Updated by: Thi Vo NP, COMPLIANCE MONITOR-C FTP. GDM Delivery Date: 12/26/17 Last Updated by: Thi Vo NP, COMPLIANCE MONITOR-C Emergent CS due Pre E, severe features. Delivery Date: 11/14/22 Last Updated by: Phoebe Mckeon repeat . Visit Details Expected Delivery Route/Plan repeat c/s with tubal Plans Covid status: unvax Flu vaccine: declines Tdap vaccine: Rhogam: NA LARC form signed: yes Problem list reviewed and updated with the most current plan of care details and appropriate orders placed. Relevant counseling for the gestational age provided. Continue routine care and follow up unless otherwise noted in visit notes/problem list details OB Flowsheet Initial Weight: 284 lb Date -?-?-?-?-?-?-?-?-?-?-?-?- EGA Weight BP Urine Prot -?-?-?-?-?-?-?-?-?-?-?-?- Glucose FHR FuHt Pres Dilation -?-?-?-?-?-?-?-?-?-?-?-?- Effaced St Visit Note 05/30/23 -?-?-?-?-?--?-?-?-?-?-?-?- 12w 4d 284 lb (+0 oz) 119/84 -?-?-?-?-?-?-?-?-?-?-?-?- 160 -?-?-?-?-?-?-?-?-?-?-?-?- CRL=55.1, LMP no t con w/CRL, due date changed. early glucola. baseline [facility] labs. accepts genetic testing LC-CRL=55.1, LMP not con w/C RL, due date changed to , reviewed with SM. early glucola. baseline [facility] labs. accepts genetic testing. 06/23/23 -?-?-?-?-?-?-?-?-?-?-?-?- 16w 0d 227 lb (-57 lb) 122/84 Negative -?-?-?-?-?-?-?-?-?-?-?-?- Negative 156 -?-?-?-?-?-?-?-?-?-?-?-?- MH-No VB. Feels well. 3hr GTT scheduled in 1 week. 07/21/23 -?-?-?-?-?-?-?-?-?-?-?-?- 20w 0d 224 lb 8 oz (-59 lb 8 oz) 139/81 Negative -?-?-?-?-?-?-?-?-?-?-?-?- Negative 145 -?-?-?-?-?-?-?-?-?-?-?-?- LC- no vb/crampi ng. some flutters. normal anatomy. fastings 103. obtaining endo consult for pre-gestational diabetes. LC- no vb/cramping. some flu tters. normal anatomy. fastings 103. obtaining endo consult for pre-gestational diabetes, has not obtained appt yet. nutrition counseling provided today. will obtain 4x glucose checks/day. education provided. if fastings not improved in 2 weeks will need to start medication man agement, plan reviewed with SM agrees and agrees. 09/08/23 -?-?-?-?-?-?-?-?-?-?-?-?- 27w 0d 237 lb 2 oz (-46 lb 14 oz) 132/84 Negative -?-?-?-?-?-?-?-?-?-?-?-?- Negative 145 29 -?-?-?-?-?-?-?-?-?-?-?-?- MH-Good FM. No V B, LOF. Saw dietitian today and discussed ways to manage FBS. Growth US ordered. 09/29/23 -?-?-?-?-?-?-?-?-?-?-?-?- 30w 0d 238 lb 2 oz (-45 lb 14 oz) 129/77 Negative -?-?-?-?-?-?-?-?-?-?-?-?- Negative 155 32 -?-?-?-?-?-?-?-?-?-?-?-?- fasting all unde r 95, some pp 125, modifying diet still with spaghetti machine operator. will start nst at 32 weeks. will call if fasting bs are elevated. r/b of GDM reviewed today. LC-fasting all under 95, lili e pp 125, 95% under 120. modifying diet still with spaghetti machine operator. will start nst at 32 weeks. will call if fasting bs are elevated. r/b of GDM reviewed today. 10/13/23 -?-?-?-?-?-?-?-?-?-?-?-?- 32w 0d 241 lb 2 oz (-42 lb 14 oz) 127/73 Negative -?-?-?-?-?-?-?-?-?-?-?-?- Negative 140 32 -?-?-?-?-?-?-?-?-?-?-?-?- LC- all but 3 fa sting under 95. will start metformin 500mg bid. d/w jv agrees with plan . start 2x weekly nst. 10/20/23 -?-?-?-?-?-?-?-?-?-?-?-?- 33w 0d 243 lb 8 oz (-40 lb 8 oz) 115/72 Negative -?-?-?-?-?-?-?-?-?-?-?-?- Negative 145 -?-?-?-?-?-?-?-?--?-?-?-?- JV- pt had growt h scan today that is pending. she wants a tubal with her section. title 19 signed today. pt has not seen a physician this and is for a rpt section and not yet scheduled. recommend sees either Dr. chandra or myself as much as possible going forward. 10/27/23 -?-?-?-?-?-?-?-?-?-?-?-?- 34w 0d 240 lb 4 oz (-43 lb 12 oz) 109/72 Negative -?-?-?-?-?-?-?-?-?-?-?-?- Negative 140 36 -?-?-?-?-?-?-?-?-?-?-?-?- JV- reactive NST . Growth 54th% 11/03/23 -?-?-?-?-?-?-?-?-?-?-?-?- 35w 0d 242 lb 2 oz (-41 lb 14 oz) 122/70 Negative -?-?-?-?-?-?-?-?-?-?-?-?- Negative 140 -?-?-?-?-?-?-?-?-?-?-?-?- MH: NST only and nonreassuring with questionable variable decels. BPP today 11/10/23 -?-?-?-?-?-?-?-?-?-?-?-?- 36w 0d 246 lb 8 oz (-37 lb 8 oz) 135/80 Negative -?-?-?-?-?-?-?-?-?-?-?-?- Negative 120 36 -?-?-?-?-?-?-?-?-?-?-?-?- JV- nst reactive . GBS collected. section scheduled for 11/26 at 7am. fasting levels still over 100. increase metformin to 1000 at bedtime, 500 in am. 2 hr pp are normal. 11/17/23 -?-?-?-?-?-?-?-?-?-?-?-?- 37w 0d 245 lb 4 oz (-38 lb 12 oz) 118/76 Negative -?-?-?-?-?-?-?-?-?-?-?-?- Negative 140 0 -?-?-?-?-?-?-?-?-?-?-?-?- JV- reactive nst . has had 3 contractions. rpt section moved to 39 weeks. JV- reactive nst. has had 3 contractions. rpt section moved to 39 weeks. fasting glucose levels normal/ low down to 60's- 70's. 11/21/23 -?-?-?-?-?-?-?-?-?-?-?-?- 37w 4d 249 lb 4 oz (-34 lb 12 oz) 124/72 Negative -?-?-?-?-?-?-?-?-?-?-?-?- Negative 130 -?-?-?-?-?-?-?-?-?-?-?-?- kw-reactive NST. large amt of movement ROS Constitutional Constitutional: Denies change in weight, fatigue, fever(s), headache(s), poor appetite or weakness Eyes Eyes: Denies blurry vision, change in vision, seeing flashes or spots in vision ENT HEENT: Denies dizziness, headache(s), loss taste/smell or sore throat Cardiovascular Cardiovascular: Denies chest pain, dizziness, dyspnea, irregular heart rhythm, leg edema, palpitations, rapid heart rate or vomiting Respiratory/Chest Respiratory/Chest: Denies chest tightness, cough, dyspnea or breast pain Gastrointestinal Gastrointestinal: Denies abdominal pain, anorexia, constipation, cramping, diarrhea, hemorrhoids, vomiting or weight changes Genitourinary Genitourinary: Denies dysuria, flank pain, genital lesions, genital pain, urinary frequency or urinary urgency Musculoskeletal Musculoskeletal: Denies back pain, difficulty walking, joint pain, limited range of motion, muscle cramps or numbness Integumentary Integumentary: Denies lesions or unusual bruising Neurologic Neurologic: Denies abnormal movements, abnormal speech, dizziness, numbness, seizure-like activity or syncope Psychiatric Psychiatric: Denies anxiety, behavioral changes, change in appetite, change in libido, cognitive impairment, confusion, depression, difficulty concentrating, hallucinations or suicidal thoughts Endocrine Endocrinology: Denies excessive sweating, polydipsia or polyuria Hematologic/Lymphatic Hematologic/Lymphatic: Denies easy bleeding, easy bruising or lymphadenopathy Allergic/Immunologic Allergic/Immunologic: Denies itchy eyes, lip swelling, seasonal rhinorrhea, rhinitis, throat swelling, tongue swelling, eczemia, wheezing or asthma Physical Exam Const alert, oriented x3, no apparent distress and healthy appearing General Appearance: cooperative; Negative for anxious HEENT normocephalic Face and Sinus: normal facial exam Eyes EOMs intact bilaterally and no scleral icterus General Eye: normal appearance of both eyes Neck full ROM and supple Lymph Lymphatic: no lymphadenopathy noted Chest Chest: abnormal inspection of the chest Resp normal respiratory effort Effort and Inspection: able to speak in complete sentences Cardio regular rate GI soft to palpation and non-tender Inspection: gravid Palpation: soft; Negative for tender external exam normal Back/Spine no CVA tenderness Extremity normal to inspection, full ROM and no clubbing, cyanosis or edema General Extremity: Negative for calf tenderness or edema Skin Lesions: no lesions Rashes: no rashes Psych mental status grossly normal Labs Labs Labs: Blood Type O POSITIVE Antibody Screen NEGATIVE Hct 36.7 % (37-47) L Hgb 11.7 g/dL (12.0-15.0) L Obstetrics Ultrasound Syphilis Total Ab Non-reactive Rubella IgG Antibody Reactive (Nonreactive) Hep Bs Antigen Non-Reactive (Nonreactive) Hepatitis C Antibody Non-Reactive (Nonreactive) Chlamydia DNA (GEMA) Negative (Negative) N.gonorrhoeae DNA (GEMA) Negative (Negative) HIV 1&2 Antibody Non-Reactive (Nonreactive) Glucose 1 Hr 50 gm 149 mg/dL (70-140) H Gest Glucose Tolerance MG/DL Miscellaneous Test Assessment & Plan (1) LGA (large for gestational age) fetus: COMMENT: Growth US ordered (2) Contraception management: QUALIFIERS: Contraceptive encounter type: unspecified Qualified Code(s): Z30.9 - Encounter for contraceptive management, unspecified COMMENT: John CARABALLO with RCS. Title 19 signed on 10/20/23 (3) Pre-existing diabetes mellitus during : QUALIFIERS: Trimester: second trimester Qualified Code(s): O24.312 - Unspecified pre-existing diabetes mellitus in , second trimester COMMENT: start NSTs at 34 weeks referral dietitian:suggestions given for managing FBS. Will check X 1 week and call if >80% >95. All 2 hr pp <120. (4) Abnormal glucose: COMMENT: 3 Hr GTT (5) : QUALIFIERS: Weeks of gestation: 38 weeks Qualified Code(s): Z3A.38 - 38 weeks gestation of COMMENT: NIPT low risk. gbs neg (6) Supervision of high risk , antepartum: COMMENT: PRR CHADD:12/08/2023, girl, PC:Lakesha Garcia Vyla. Fiance:Eamon([facility]) 2nd together (7) History of pre-eclampsia: COMMENT: 2nd , emergent CS. baseline labs drawn. baby asa started (8) Gestational diabetes: COMMENT: with first , early GCT ordered (9) History of : COMMENT: X 3:1st:fTP; 2nd:Pre E, 3rd: RLTCS desires repeat with BS for 4th 12/02/23 noon
[2023-11-26 16:39] LABS: Absolute Lymphocyte Count 2.59 X10^3/uL (0.83-4.51); Absolute Neutrophil Count 6.7 X10^3/uL (2.0-7.7); Basophil# 0.03 X10^3/uL; Basophil% 0.3 % (0-1); Eosinophil# 0.04 X10^3/uL; Eosinophils% 0.4 % (0-5); Hematocrit 38.7 % (37-47); Hemoglobin 12.4 g/dL (12.0-15.0); Lymphocyte # 2.59 X10^3/ul (0.83-4.51); Lymphocyte % 25.6 % (19-41); Mean Corpuscular Hgb 30.8 pg (27.0-32.0); Mean Corpuscular Volume 96.3 fL (81-99); Mean Platelet Vol. 10.4 fl (6.2-12.0); Monocyte# 0.66 X10^3/uL; Monocyte% 6.5 % (0-10); NRBC Flagged by Analyzer 0 % (0-5); Neutrophil # 6.67 X10^3/uL (2.7-7.7); Neutrophil % 65.8 % (47-70); Platelet Count 168 K/mm3 (150-450); RBC Distribution Width CV 13.8 % (11.6-14.6); RBC Distribution Width SD 48.7 fl (35.1-43.9); Red Blood Count 4.02 M/mm3 (4.2-5.4); White Blood Count 10.1 K/mm3 (4.4-11.0)
[2023-11-26] MEDS: Cefazolin 3 GM in 0.9% Normal Saline (100mL Bag) 100 ML IV (17:08)
--- NOTE | 2023-11-26 17:21 | FALS_PTH ---
PATIENT: MEAGHAN APONTE LOC: WP U#:[id number] AGE/SX: 28/F ROOM: WP006 RE11/26/[address]: Dr. Purvi Melgar DO : 1995 BED: 1 DIS: 11/29/2023 SPEC #: [id number] RECD: 11/27/23 07:31 STATUS: IRLANDA KRISTI #: [id number] SHANDA: 11/26/23 17:[address]: Purvi Melgar DEPT: SURGICAL PATHOLOGY RECD BY: Elizabeth Payan ENTERED: 11/27/23 07:31 SP TYPE: FALL TUBES OTHR DR: Dr. Elder Morrow MD Tissues: Fallopian tube Procedures: Surgery Specimen Level II HEADER OPERATION: Tubal ligation PRE-OP DIAGNOSIS: Sterilization TISSUE SUBMITTED: Fallopian tubes MICROSCOPIC DIAGNOSIS Right fallopian tube, salpingectomy: Complete cross-sections of fallopian tube with no pathologic change. Left fallopian tube, salpingectomy: Complete cross-sections of fallopian tube with no pathologic change. AM:herb 11/28/2023 MICROSCOPIC DESCRIPTION Slides are reviewed. GROSS DESCRIPTION Received in fixative is one container labeled with the patient's name and designated bilateral fallopian tubes, stitch left. The specimen consists of bilateral fallopian tubes including fimbrial ends. The right fallopian tube measures 6.0 cm in length and 0.5 cm in diameter and left fallopian tube measures 5.0 cm in length and up to 1.0 cm in diameter. Sections reveal unremarkable cut surfaces. [employer] sections are submitted in two cassettes as follows: 1 - right fallopian tube, 2 - left fallopian tube. / SJ:rg 11/27/2023 TC:4 CPT: 62762 x2
[2023-11-26 17:27] LABS: Syphilis Antibodies Non-reactive
--- NOTE | 2023-11-26 17:54 | EX.PCM.OBRPT ---
Assessment & Plan (1) LGA (large for gestational age) fetus: COMMENT: Growth US ordered (2) Contraception management: QUALIFIERS: Contraceptive encounter type: unspecified Qualified Code(s): Z30.9 - Encounter for contraceptive management, unspecified COMMENT: Wants BS with RCS. Title 19 signed on 10/20/23 (3) Pre-existing diabetes mellitus during : QUALIFIERS: Trimester: second trimester Qualified Code(s): O24.312 - Unspecified pre-existing diabetes mellitus in , second trimester COMMENT: start NSTs at 34 weeks referral dietitian:suggestions given for managing FBS. Will check X 1 week and call if >80% >95. All 2 hr pp <120. (4) Abnormal glucose: COMMENT: 3 Hr GTT (5) : QUALIFIERS: Weeks of gestation: 38 weeks Qualified Code(s): Z3A.38 - 38 weeks gestation of COMMENT: NIPT low risk. gbs neg (6) Supervision of high risk , antepartum: COMMENT: PRR CHADD:12/08/2023, girl, PC:Lakesha Garcia Vyla. Fiance:Eamon([facility] 2nd together (7) History of pre-eclampsia: COMMENT: 2nd , emergent CS. baseline labs drawn. baby asa started (8) Gestational diabetes: COMMENT: with first , early GCT ordered (9) History of : COMMENT: X 3:1st:fTP; 2nd:Pre E, 3rd: RLTCS desires repeat with BS for 4th 12/02/23 noon (10) bradycardia: (11) Dehiscence of old uterine scar with extension before onset of labor during third trimester of : Maternal Data Information CHADD Calculator Estimated Delivery Date Method Current WG Current Estimate 12/08/23 Ultrasound #1 38w 2d Other Estimates 11/17/23 LMP (Uncertain) 41w 2d Final CHADD Source: US <20 weeks Gestational age: 38 weeks 2 days Doctor Who Attended Delivery: Carin Stahl Details Operative Information Date of Procedure: 11/26/23 Pre-Operative Diagnosis: @ 38 weeks 2 days, bradycardia, prior section, desires permanent sterilization Post-Operative Diagnosis: @ 38 weeks 2 days, bradycardia, prior section, desires permanent sterilization, uterine dehiscence Procedure Type: low transverse air boatswain #1: Evaristo Mark Type of Anesthesia: Spinal Anesthesiologist: Ryan Escobedo Antibiotic Given: Ancef 3 grams IV x1 Drain: [place] to straight drain Estimated Blood Loss: 600cc Fluids Replaced: 900cc Procedure Start Time: 17:17 Procedure Stop Time: 17:57 Time of Delivery: 17:21 Findings Description of Procedure: Procedure: The patient was brought to the operating room where she was administered spinal anesthesia. She was prepped and draped in the normal sterile fashion and was placed in a dorsal supine position with a leftward tilt. Pfannenstiel skin incision was made with a scalpel and carried through to the underlying layers. The fascia was nicked in the midline and extended laterally using Lopez scissors. The anterior aspect of the fascia was grasped with Sarah clamps and the underlying rectus muscles dissected off using the Metzenbaum scissors. The inferior aspect the fascia was also grasped with Sarah clamps and the underlying rectus muscle dissected off with the Metzenbaum scissors. The rectus muscles were in the midline. Peritoneum was entered sharply. The uterus was identified and a large bulge was seen from the lower uterine segment. It was identified that this was the bladder flap covering a long large approximate 12 cm uterine dehiscent. bladder blade was inserted into the abdomen. Bladder flap was created off the uterus using blunt dissection and this resulted in immediate exposure of the membranes. Brains were ruptured with an Allis clamp. The infant's head was grasped with the help of my assistant operator and fundal pressure the infant was delivered through the uterine incision without difficulty. The mouth and nares were bulb suctioned. After a 30 second delay the cord was clamped and cut. The was handed off to the awaiting physician office nurse for routine assessment. Placenta was delivered manually without difficulty. The uterus was exteriorized and cleared of all clots and debris. Incision was closed with an 0 Vicryl suture in a running locked fashion. Second layer of 1-0 monocryl suture was used in imbricating manner to create excellent closure and hemostasis. The right tube was grasped with a Dayton clamp and the underlying mesosalpinx was cauterized and cut with the ligasure device removing the entire tube and fimbriated end. The same procedure was performed on the opposite side. Both fallopian tubes were passed off for pathology analysis. The uterus was returned to the abdomen. The gutters were cleared of all clots and debris. The peritoneum was closed in a pursestring pattern using a 3-0 Vicryl suture. This muscle was reapproximated with a 3-0 Vicryl. The fascia was closed with an 0 Vicryl suture. Subcutaneous tissue layer was closed using a plain gut suture. The skin was closed with a 4-0 Monocryl subcuticular stitch. The skin was also sealed with surgical glue. The patient tolerated the procedure well sponge lap and needle counts were correct at each tissue closure plane and the patient is now being brought to the recovery room in stable condition Presentation: Positive for Vertex Amniotic Membrane Rupture Type: Artificial Amniotic Fluid Description: Clear Placental Delivery Description: Manual Removal Placenta Disposition: [facility] Cord Vessel Description: 3 Vessels Cord Entanglement: None A Gender: Female (5 minute): 10 Delayed Cord Clamping: Yes Complications Risks of Surgery Discussed w/Patient: Bleeding, Anesthesia Risks, Infection, Need for Future C-Sections, Permanency, Failure Rate of 1 to 2%, Injury to surrounding structure(s) including bowel and bladder and Availability of other non-permanent control options Complications: no complications Multi Select Codes Urinary/Genital Urinary/Genital CPT Codes: 47818 C/S+TL, 80474 delivery+PP Care(MARCUS) and Other Procedure See Report
--- NOTE | 2023-11-26 18:02 | DCINST_ITS ---
Discharge Instructions Diet Discharge Diet: No restrictions Activity Discharge Activity: May Not Drive (for 2 weeks or while taking narcotic pain medications.), May Shower and May Take a Tub Bath (in 7 days.) May resume sexual activity in: 4-6 weeks Weight Bearing Status: Full weight bearing Lifting Restrictions: 20 pounds Dressing / Incision Call your doctor if your incision/area has: Continuous Slow Oozing, Sudden Increased Bleeding, Increased Pain/ Swelling, Increased Redness and Foul Smelling Discharge Call your doctor if you observe: Fever of 101 or Higher and Using more than 1 pad per hour Suture Line Care: Avoid Pulling/Pushing and Avoid Pinching/Bending Cleanse incision/area with: Soap & Water and Keep Dressing Clean & Dry Follow Up Care Please Follow Up With: Purvi Melgar DO When: Call [phone] to make an appointment for an incision check in 1-2 weeks. Test Results: Test results from this visit will be discussed in further detail at your follow- up appointment, if applicable. Discharge Plan Admission Admit Date/Time: 11/26/23 16:11 Primary Reason for Your Visit: section and bilateral salpingectomy Attending Provider: Purvi Melgar Primary Care Provider: Elder Morrow Discharge Orders/Prescriptions Prescriptions: New ibuprofen 800 mg tablet 800 mg PO Q8H PRN (Reason: pain) Qty: 30 0RF Continued prenat.vits,amy,ilk-lpco-gihwd Tablet 1 tab PO DAILY metformin 500 mg tablet 500 mg PO BID Qty: 60 0RF ferrous sulfate 325 mg (65 mg iron) Capsule, Extended Release 325 mg PO DAILY Discontinued aspirin [Harsha Chewable Aspirin] 81 mg tablet,chewable 81 mg PO DAILY No Action (DME) lancets Misc See Rx Instructions .MEDSUPPLY Qty: 200 6RF Rx Instructions: As directed-fasting & 2 HR Post meals (DME) Blood Glucose Test Strip See Rx Instructions .Route Qty: 120 8RF Rx Instructions: As directed- test fasting & 2 HR post meals (DME) blood-glucose meter [OneTouch Ultra2 Meter] Misc See Rx Instructions .ROUTE .COMPLEX Qty: 1 0RF Dose Instruction: USE DIRECTED Rx Instructions: USE DIRECTED Referrals / Follow Up: Elder Morrow MD [Primary Care Provider] - Disposition Disposition (needs filled in before D/C Order can be placed): Home, Self Care
[2023-11-26] MEDS: Oxytocin 15 Units/NS 250ml 15 UNITS/250 ML IV.SOLN 83 UNITS IV (18:30)
[2023-11-26] MEDS: Acetaminophen 500 MG Tablet 1000 MG PO (20:01)
[2023-11-26] MEDS: Ketorolac 30 MG/ML Syringe IV (20:02)
--- NOTE | 2023-11-26 20:24 | NURSING ---
1605 Upon arrival to unit, assisted directly to OR and monitor on and recording. FHR 130-140 so plan is to proceed with RC/S when labwork done. Continuous monitor on mother and baby while patient prepped for surgery. Provider at bedside. Emotional support to pt and support person.
[2023-11-26] MEDS: Lactated Ringers 1,000 ML 100 ML IV (21:28)
[2023-11-26 21:45] LABS: Pathology Specimen OB SEE PATHOLOGY REPORT
[2023-11-27] VITALS (11 sets, daily range): BP systolic 94–110; BP diastolic 58–79; PULSE 82–101; RESP 16–18; TEMP 36.1–36.7; O2SAT 96–98
[2023-11-27 00:35] LABS: Bedside Glucose 103 mg/dL (74-106)
[2023-11-27] MEDS: Acetaminophen 500 MG Tablet 1000 MG PO ×4 (02:23→20:43)
[2023-11-27] MEDS: Ketorolac 30 MG/ML Syringe IV ×3 (02:24→15:12)
[2023-11-27] MEDS: Nalbuphine 10 MG/ML Ampul 5 MG IV (02:36)
[2023-11-27 06:51] LABS: Hematocrit 30.6 % (37-47); Hemoglobin 9.5 g/dL (12.0-15.0); Mean Corpuscular Hgb 30.1 pg (27.0-32.0); Mean Corpuscular Volume 96.8 fL (81-99); Mean Platelet Vol. 9.8 fl (6.2-12.0); Platelet Count 138 K/mm3 (150-450); RBC Distribution Width CV 13.9 % (11.6-14.6); RBC Distribution Width SD 48.9 fl (35.1-43.9); Red Blood Count 3.16 M/mm3 (4.2-5.4); White Blood Count 9.1 K/mm3 (4.4-11.0)
[2023-11-27 07:04] LABS: Bedside Glucose 92 mg/dL (74-106)
--- NOTE | 2023-11-27 08:07 | PCM.PN.OB ---
Subjective Subjective Patient doing well without complaints. Tolerating PO. Ambulating and voiding without difficulty. feeding well. Denies chest pain, shortness of breath, calf pain/swelling, fevers, chills, lightheadedness. Objective Data Objective Data Vital Signs: Vital Signs Temp Pulse Resp BP Pulse Ox O2 Del Method 97.2 F L 85 18 107/61 96 Room Air 11/26/23 18:30 11/27/23 02:26 11/27/23 06:54 11/27/23 02:26 11/27/23 03:30 11/27/23 06:54 Oxygen Delivery Method Room Air Weight: 249 lb Body Mass Index (BMI) 43.4 Intake & Output: Intake and Output for Last 24 Hours 11/25/23 11/26/23 11/27/23 23:59 23:59 23:59 Intake Total 1362.62 / 1362.62 938.33 / 938.33 Output Total 800 / 800 1300 / 1300 Balance 562.62 / 562.62 -361.67 / -361.67 Lab / Micro Data 11/27/23 06:45 Labs: Laboratory Results - last 24 hr 11/26/23 16:15: WBC 10.1, RBC 4.02 L, Hgb 12.4, Hct 38.7, MCV 96.3, MCH 30.8, MCHC 32.0, RDW Std Deviation 48.7 H, RDW Coeff of [place] 13.8, Plt Count 168, MPV 10.4, Immature Gran % (Auto) 1.400 H, Neut % (Auto) 65.8, Lymph % (Auto) 25.6, [place] % (Auto) 6.5, Eos % (Auto) 0.4, Baso % (Auto) 0.3, Absolute Neuts (auto) 6.7, Absolute Lymphs (auto) 2.59, Nucleated RBC % 0, Syphilis Total Ab Non-reactive, Blood Type O POSITIVE, Antibody Screen NEGATIVE 11/26/23 20:13: POC Glucose 103 11/27/23 06:43: POC Glucose 92 11/27/23 06:45: WBC 9.1, RBC 3.16 L, Hgb 9.5 L, Hct 30.6 L, MCV 96.8, MCH 30.1, MCHC 31.0 L, RDW Std Deviation 48.9 H, RDW Coeff of [place] 13.9, Plt Count 138 L, MPV 9.8 ROS Constitutional Constitutional: Reports systems reviewed and no addt'l complaints, except as documented Cardiovascular Cardiovascular: Reports systems reviewed and no addt'l complaints, except as documented Respiratory/Chest Respiratory/Chest: Reports systems reviewed and no addt'l complaints, except as documented Gastrointestinal Gastrointestinal: Reports systems reviewed and no addt'l complaints, except as documented Physical Exam Const alert, oriented x3 and no apparent distress HEENT Head and Scalp: atraumatic Resp normal respiratory effort GI soft to palpation and non-tender Inspection: incision intact, healing well and drainage (none) Bimanual Exam - Vag & Uterus: uterus non-tender Uterus Palpation: uterus fundus firm (below Umbilicus) Assessment & Plan (1) Dehiscence of old uterine scar with extension before onset of labor during third trimester of : PLAN: Plan s/p LTCS PPD # 1 1. routine post care 2. breast feeding- support given 3. rh positive 4. rubella immune
[2023-11-27] MEDS: 0.9% Saline Lock 10 ML Syringe IV ×2 (08:26→15:12)
[2023-11-27] MEDS: Senna/Docusate Sodium 1 Tablet PO (10:18)
[2023-11-27 10:43] LABS: Bedside Glucose 96 mg/dL (74-106)
[2023-11-27] MEDS: Enoxaparin 40 MG/0.4 ML Syringe SC ×2 (11:18→22:45)
[2023-11-27 16:34] LABS: Bedside Glucose 97 mg/dL (74-106)
[2023-11-27] MEDS: Ibuprofen 600 MG Tablet PO (18:36)
[2023-11-28 00:30] LABS: Bedside Glucose 97 mg/dL (74-106)
[2023-11-28] MEDS: Ibuprofen 600 MG Tablet PO ×4 (01:06→21:19)
[2023-11-28 01:07] VITALS: BP 104/58; PULSE 89; RESP 16; TEMP 36.2; O2SAT 96
[2023-11-28] MEDS: Acetaminophen 500 MG Tablet 1000 MG PO ×4 (02:36→23:25)
--- NOTE | 2023-11-28 06:25 | PCM.PN.OB ---
Subjective Subjective Patient doing well without complaints. Tolerating PO. Ambulating and voiding without difficulty. feeding well. Denies chest pain, shortness of breath, calf pain/swelling, fevers, chills, lightheadedness. Objective Data Objective Data Vital Signs: Vital Signs Temp Pulse Resp BP Pulse Ox O2 Del Method 97.1 F L 89 16 104/58 L 96 Room Air 11/28/23 01:07 11/28/23 01:07 11/28/23 01:07 11/28/23 01:07 11/28/23 01:07 11/28/23 01:07 Oxygen Delivery Method Room Air Weight: 249 lb Body Mass Index (BMI) 43.4 Intake & Output: Intake and Output for Last 24 Hours 11/26/23 11/27/23 11/28/23 23:59 23:59 23:59 Intake Total 1362.62 / 1362.62 938.33 / 938.33 Output Total 800 / 800 1600 / 1600 Balance 562.62 / 562.62 -661.67 / -661.67 Lab / Micro Data 11/27/23 06:45 Labs: Laboratory Results - last 24 hr 11/27/23 06:43: POC Glucose 92 11/27/23 06:45: WBC 9.1, RBC 3.16 L, Hgb 9.5 L, Hct 30.6 L, MCV 96.8, MCH 30.1, MCHC 31.0 L, RDW Std Deviation 48.9 H, RDW Coeff of [place] 13.9, Plt Count 138 L, MPV 9.8 11/27/23 10:20: POC Glucose 96 11/27/23 16:11: POC Glucose 97 11/27/23 22:47: POC Glucose 97 ROS Constitutional Constitutional: Reports systems reviewed and no addt'l complaints, except as documented Cardiovascular Cardiovascular: Reports systems reviewed and no addt'l complaints, except as documented Respiratory/Chest Respiratory/Chest: Reports systems reviewed and no addt'l complaints, except as documented Gastrointestinal Gastrointestinal: Reports systems reviewed and no addt'l complaints, except as documented Physical Exam Const alert, oriented x3 and no apparent distress HEENT Head and Scalp: atraumatic Resp normal respiratory effort GI soft to palpation and non-tender Inspection: incision intact, healing well and drainage (none) Bimanual Exam - Vag & Uterus: uterus non-tender Uterus Palpation: uterus fundus firm (below Umbilicus) Assessment & Plan (1) Dehiscence of old uterine scar with extension before onset of labor during third trimester of : (2) History of : COMMENT: X 3:1st:fTP; 2nd:Pre E, 3rd: RLTCS desires repeat with BS for 4th 12/02/23 noon PLAN: Plan s/p LTCS PPD # 2 1. routine post care 2. breast feeding- support given 3. rh positive 4. rubella immune
[2023-11-28 07:44] VITALS: BP 121/81; PULSE 86; RESP 16; TEMP 36.3
[2023-11-28 07:58] LABS: Bedside Glucose 84 mg/dL (74-106)
[2023-11-28] MEDS: Senna/Docusate Sodium 1 Tablet PO (11:04)
[2023-11-28] MEDS: Enoxaparin 40 MG/0.4 ML Syringe SC ×2 (11:05→23:25)
[2023-11-28 11:37] LABS: Bedside Glucose 118 mg/dL (74-106)
--- NOTE | 2023-11-28 14:16 | CASEMGMT ---
Social Work Assessment Labor and Delivery Unit Patient Address:[address] [place] [id number] Phone number: [phone] Date of Referral: 11/26/23 Time of Referral:? 1841 Referred By: Purvi Melgar Date of Intervention: ??11/28/23 Time of Intervention:? 1300 Reason for Referral:? Family history of alcoholism Sw completed chart review and acknowledges social work consult due to maternal family history of alcoholism. Sw presented to bedside and introduced self to mother of baby (CHARANJIT Araujo) and explained sw role during hospitalization. Sw completed psychosocial assessment and provided list of community resources for MOB to review. History obtained from: medical records, MOB Household composition: Currently residing in the family home is MOB, father of baby (ZINA Knutson) and their one child they have together (Aliseylstephanie- 1 year old) and NATASHA's two other children ( Rafael- 6 years odl and Jose- 7 years old). MOB states that AYSHA has a child from a former relationship as well, Linda (10 years old). MOB states that there are no concerns with their housing. Patient's parent/guardian status:? NATASHA states that she and AYSHA met through a mutual friend have been together for three years. MOB denies any concerns of domestic violence or intimate partner violence. ? Medical History: ?NATASHA is 28 year old female who is 4, para 3- now 4 following labor and delivery. NATASHA received routine care during with [facility]. NATASHA delivered baby via vaginal delivery on 11/26/23 at full term. Baby girl, La Nena, was born weighing 8lb 3oz and her apgars were 7, 5 and 8 at one, five and 10 minutes of life respectfully. NATASHA states that she is breast feeding and it is going well. Baby will be followed by Dr. Quintana for pediatrics. Educational Status:? NATASHA states that she completed high school and is currently in college for Business in [employer]. AYSHA graduated from high school. Financial Status: MOB states that she is a wiyot at a [employer], and AYSHA works for [employer]. Supplies:?? Parents have obtained all necessary baby supplies, including: clothes, diapers, wipes, car seat, and safe sleep space. Childcare/Caregiver(s):? MOB states that she will be the primary caregiver to baby, along with FOB. When both parents are working they have several family members and friends who will alternate watching the baby and siblings. Transportation:?? No barriers at this time. Programs/Agencies Involved: ?NATASHA states that she has insurance through [employer]. ?? Children Services/Legal Issues:?No history of Children Services involvement, no issues or concerns warranting referral to be made at this time. ?? Behavioral Health Issues: ??Mental Health History: NATASHA denies mental health history for herself and FOB. MOB states that she does believe she struggled with depression following the delivery of some of her babies. MOB states that during that time she felt extremely emotional, but never anything that interfered with her ability to care for herself or her baby/ children. ??? Substance Use History:?NATASHA denies substance use prior to and during . ? Family History:?NATASHA admits that both sides of the family (her side and FOB) have alcohol issues. MOB states that individuals who have a history of alcoholism will not be solely responsible for providing care for her children independently.? Drug Screens: ??No urine screens observed during chart review. Family/Social Stressors:? NATASHA states that it has been overwhelming to have baby admitted to [facility], but she knows that baby is in good care and is hopeful she will be ready for discharge tomorrow. Support Systems: MOB states that her parents and paternal great grandparents are supportive. Depression/Shaken Baby/Safe Sleeping:? Sw educated MOB on signs and symptoms of baby blues and depression and anxiety to be on the look out for. MOB states that if she were to struggle she knows that FOB would be able to recognize her struggling and would know how to help her through those struggles. Sw educated MOB on shaken baby prevention and ABCs of safe sleep. MOB expressed understanding. ASSESSMENT:? MOB and baby admitted following labor and delivery. MOB engaged in psychosocial assessment. MOB receptive to involvement and support. MOB talkative regarding her mental health history following labor and delivery of her other children. MOB with adequate supports in palce and all necessary baby supplies. PLAN:?MOB and baby to be discharged when medically ready. ?No other services requested or indicated. Vania Waite, [employer] ETCHER, NEW [employer] SALES CONSULTANT
[2023-11-28 15:00] VITALS: BP 99/58; PULSE 86; RESP 16; TEMP 36.7
[2023-11-28 19:45] VITALS: BP 108/65; PULSE 91; RESP 16; TEMP 36.8; O2SAT 98
[2023-11-29] MEDS: Ibuprofen 600 MG Tablet PO (03:19)
[2023-11-29 03:20] VITALS: BP 111/75; PULSE 75; RESP 16; TEMP 36.6; O2SAT 96
[2023-11-29] MEDS: Acetaminophen 500 MG Tablet 1000 MG PO (05:09)
--- NOTE | 2023-11-29 07:06 | PCM.PN.OB ---
Subjective Subjective Patient doing well without complaints. Tolerating PO. Ambulating and voiding without difficulty. infant feeding well. Denies chest pain, shortness of breath, calf pain/swelling, fevers, chills, lightheadedness. Objective Data Objective Data Vital Signs: Vital Signs Temp Pulse Resp BP Pulse Ox O2 Del Method 97.8 F 75 16 111/75 96 Room Air 11/29/23 03:20 11/29/23 03:20 11/29/23 03:20 11/29/23 03:20 11/29/23 03:20 11/29/23 03:20 Oxygen Delivery Method Room Air Weight: 249 lb Body Mass Index (BMI) 43.4 Intake & Output: Intake and Output for Last 24 Hours 11/27/23 11/28/23 11/29/23 23:59 23:59 23:59 Intake Total 938.33 / 938.33 Output Total 1600 / 1600 Balance -661.67 / -661.67 Lab / Micro Data 11/27/23 06:45 Labs: Laboratory Results - last 24 hr 11/28/23 07:36: POC Glucose 84 11/28/23 11:19: POC Glucose 118 H ROS Constitutional Constitutional: Reports systems reviewed and no addt'l complaints, except as documented Cardiovascular Cardiovascular: Reports systems reviewed and no addt'l complaints, except as documented Respiratory/Chest Respiratory/Chest: Reports systems reviewed and no addt'l complaints, except as documented Gastrointestinal Gastrointestinal: Reports systems reviewed and no addt'l complaints, except as documented Physical Exam Const alert, oriented x3 and no apparent distress HEENT Head and Scalp: atraumatic Resp normal respiratory effort GI soft to palpation and non-tender Inspection: incision intact, healing well and drainage (none) Bimanual Exam - Vag & Uterus: uterus non-tender Uterus Palpation: uterus fundus firm (below Umbilicus) Assessment & Plan (1) Dehiscence of old uterine scar with extension before onset of labor during third trimester of : (2) History of : COMMENT: X 3:1st:fTP; 2nd:Pre E, 3rd: RLTCS desires repeat with BS for 4th 12/02/23 noon PLAN: Plan s/p LTCS PPD # 3 1. routine post care 2. breast feeding- support given 3. rh positive 4. rubella immune
--- NOTE | 2023-11-29 07:07 | PCM.DC.SUM ---
Providers Date of Admission: 11/26/23 Primary Care Physician: Dr. Elder Morrow MD Reason For Visit: REPEAT C SECTION Diagnosis Discharge Diagnosis (1) Dehiscence of old uterine scar with extension before onset of labor during third trimester of : Status: Acute Code(s): O71.03 - Rupture of uterus before onset of labor, third trimester (2) History of : Status: Acute Code(s): Z98.891 - History of uterine scar from previous surgery Plan s/p LTCS PPD # 3 1. routine post care 2. breast feeding- support given 3. rh positive 4. rubella immune Medications at Discharge Home Medications prenat.vits,amy,puz-[id number]-itoml 1 tab PO DAILY 04/11/22 blood sugar diagnostic (Blood Glucose Test strips) #120 ea 07/01/23 lancets #200 ea 07/01/23 blood-glucose meter ([employer] Ultra2 Meter) #1 ea 07/21/23 metformin 500 mg tablet 500 mg PO BID #60 tabs 10/13/23 ibuprofen 800 mg tablet 800 mg PO Q8H PRN pain #30 tabs 11/26/23 oxycodone-acetaminophen 5 mg-325 mg tablet (Percocet) 1 tab PO Q6H PRN pain 7 days #20 tabs 11/28/23 Hospital Course Summary of Care Provided Hospital Course: patient presented emergently from the office due to suspected uterine scar dehisence and upon delivery this was found. patient underwent delivery and postoperatively had a routine recovery. Postoperatively patient had return of bowel and bladder function and was ambulating well, tolerating adequate p.o., and was stable for discharge to home on postop day #3. Discharge medications naproxen and Percocet. Follow-up in office in 2 weeks for incision check in 6 weeks for visit. Routine post section diet and activity instructions. Weight / BMI Weight Weight: 249 lb Body Mass Index (BMI) 43.4 ABG / Lab / Microbiology Data 11/27/23 06:45 Laboratory: Laboratory Results - last 24 hr 11/28/23 07:36: POC Glucose 84 11/28/23 11:19: POC Glucose 118 H D/C Instructions Discharge Diet: No restrictions Discharge Activity: May Not Drive (for 2 weeks or while taking narcotic pain medications.), May Shower and May Take a Tub Bath (in 7 days) May shower in (days): 0 May resume sexual activity in: 4-6 weeks Weight Bearing Status: Full weight bearing Call your doctor if your incision/area has: Continuous Slow Oozing, Sudden Increased Bleeding, Increased Pain/ Swelling, Increased Redness and Foul Smelling Discharge Call your doctor if you observe: Fever of 101 or Higher and Using more than 1 pad per hour Suture Line Care: Avoid Pulling/Pushing and Avoid Pinching/Bending Cleanse incision/area with: Soap & Water and Keep Dressing Clean & Dry Please Follow Up With: Purvi Melgar DO When: Call [phone] to make an appointment for an incision check in 1-2 weeks. Meaningful Use Info Meaningful Use Diagnoses (Choose all that apply): None applicable Discharge Plan Admission Admit Date/Time: 11/26/23 16:11 Primary Reason for Your Visit: section and bilateral salpingectomy Attending Provider: Purvi Melgar Primary Care Provider: Elder Morrow Discharge Orders/Prescriptions Prescriptions: New ibuprofen 800 mg tablet 800 mg PO Q8H PRN (Reason: pain) Qty: 30 0RF oxycodone-acetaminophen [Percocet] 5-325 mg tablet 1 tab PO Q6H PRN (Reason: pain) 7 Days Qty: 20 0RF Continued prenat.vits,amy,[id number] Tablet 1 tab PO DAILY metformin 500 mg tablet 500 mg PO BID Qty: 60 0RF Discontinued aspirin [Harsha Chewable Aspirin] 81 mg tablet,chewable 81 mg PO DAILY No Action (DME) lancets Misc See Rx Instructions .MEDSUPPLY Qty: 200 6RF Rx Instructions: As directed-fasting & 2 HR Post meals (DME) Blood Glucose Test Strip See Rx Instructions .Route Qty: 120 8RF Rx Instructions: As directed- test fasting & 2 HR post meals (DME) blood-glucose meter [[employer] Ultra2 Meter] Misc See Rx Instructions .ROUTE .COMPLEX Qty: 1 0RF Dose Instruction: USE DIRECTED Rx Instructions: USE DIRECTED Referrals / Follow Up: Elder Morrow MD [Primary Care Provider] - Disposition Disposition (needs filled in before D/C Order can be placed): Home, Self Care
[2023-11-29 07:42] VITALS: BP 116/74; PULSE 84; RESP 16; TEMP 36.6; O2SAT 98
--- NOTE | 2023-12-04 08:50 | NURSING ---
12/02/23 1500: Follow up questions asked by León,IBCLC,PACKAGE DYE STAND LOADER at follow up visit. Pt. reports no s+s since discharge. No concerns with discharge instructions or care. being seen for feeding assessment. Denies questions or concerns at this time.
== END 2023-11-29 10:00 | disposition home or self-care (01) | DRG 539 ==
PROVIDERS: Admitting Provider Obstetrics & Gynecology; PCP Family Medicine; Visit Provider Obstetrics & Gynecology
DX: O71.03 Rupture of uterus before onset of labor, third trimester (principal); O24.12 Pre-existing type 2 diabetes mellitus, in childbirth; O76 Abnormality in fetal heart rate and rhythm complicating labor and delivery; Z37.0 Single live birth; Z3A.38 38 weeks gestation of pregnancy; O34.211 Maternal care for low transverse scar from previous cesarean delivery; Z30.2 Encounter for sterilization; Z79.84 Long term (current) use of oral hypoglycemic drugs; Z79.899 Other long term (current) drug therapy
CPT/HCPCS: 59025; 82962; 85025; 85027; 86780; 86850; 86900; 86901; 88302; 99221; J7120; A4216; G0378; J2405

== ENCOUNTER → 2024-12-09 | Outpatient (CLI) | payer MEDICAID, SELFPAY ==
[2024-12-09 12:09] LABS: Absolute Lymphocyte Count 2.68 X10^3/uL (0.83-4.51); Absolute Neutrophil Count 4.8 X10^3/uL (2.0-7.7); Basophil# 0.03 X10^3/uL; Basophil% 0.4 % (0-1); Eosinophil# 0.11 X10^3/uL; Eosinophils% 1.3 % (0-5); Hematocrit 42.3 % (37-47); Lymphocyte # 2.68 X10^3/ul (0.83-4.51); Lymphocyte % 32.6 % (19-41); Mean Corp Hgb Conc 33.1 g/dL (32-36); Mean Corpuscular Hgb 30.3 pg (27.0-32.0); Mean Corpuscular Volume 91.6 fL (81-99); Mean Platelet Vol. 10.7 fl (6.2-12.0); Monocyte# 0.53 X10^3/uL; Monocyte% 6.5 % (0-10); NRBC Flagged by Analyzer 0 % (0-5); Neutrophil # 4.83 X10^3/uL (2.7-7.7); Neutrophil % 58.8 % (47-70); Platelet Count 187 K/mm3 (150-450); RBC Distribution Width CV 12.5 % (11.6-14.6); RBC Distribution Width SD 41.5 fl (35.1-43.9); Red Blood Count 4.62 M/mm3 (4.2-5.4); White Blood Count 8.2 K/mm3 (4.4-11.0)
[2024-12-09 12:32] LABS: ALB/GLOB Ratio 0.9 RATIO (0.9-2.4); AST(SGOT) 17 U/L (15-37); Alanine Aminotransfer ALT/SGPT 30 U/L (13-56); Albumin, Serum 3.9 g/dL (3.2-5.0); Alkaline Phosphatase 83 U/L (45-117); Anion Gap 7 (5-15); BUN 11 mg/dL (7-18); BUN/Creat Ratio 14.2 RATIO (10-20); Calcium,Total 9.7 mg/dL (8.5-10.1); Chloride 104 mmol/L (98-107); Creatinine, Serum 0.78 mg/dL (0.55-1.02); EST Glomerular Filtration Rate 94 mL/min (>60); Est Glom Filt Rate - Afr Amer 114 mL/min (>60); Estradiol 72.3 pg/mL; Follicle Stimulating Hormone 2.2 mIU/mL; Globulin 4.3 g/dL (2.2-4.2); Glucose 106 mg/dL (74-106); Luteinizing Hormone 4.8 mIU/mL; Potassium 4.2 mmol/L (3.5-5.1); Protein, Total 8.2 g/dL (6.4-8.2); Sodium Level 137 mmol/L (136-145); T4 Free Direct 0.86 ng/dL (0.76-1.46)
[2024-12-12 17:06] LABS: Testosterone Free 2.2 pg/mL (0.0-4.2)
[2024-12-14 07:45] LABS: HPV Reflexed? NOT INDICATED
== END | disposition home or self-care (01) ==
LOC: BWCLAB 11:17
PROVIDERS: PCP Family Medicine; Referring Provider Nurse Practitioner Family; Visit Provider Nurse Practitioner Family
DX: Z12.4 Encounter for screening for malignant neoplasm of cervix (principal); N91.2 Amenorrhea, unspecified
CPT/HCPCS: 36415; 80053; 82306; 82627; 82670; 83001; 83002; 84402; 84439; 84443; 85025; 88175; 82626; G0145